=== PATIENT | female | born 1950 | race Caucasian/White ===

== ENCOUNTER 2019-09-12 10:42 | Outpatient (CLI) | payer MEDICARE, SELFPAY ==
--- NOTE | ~2019-09-12 | MR_ITS ---
EXAMINATION: MR brain/brain stem wo con DATE: 09/12/2019 11:53 INDICATION: Hydrocephalus. TECHNIQUE: Magnetic resonance imaging (MRI) of the brain and brainstem was performed without intraven ous contrast. Sequences included sagittal and axial T1-weighted FSE, axial diffusion-weighted FS EPI, axial T2*-weighted GRE, axial T2-weighted FLAIR Propeller, and axial T2-weighted Propeller. Apparent diffusion coefficient (ADC) maps were created. COMPARISON: Brain MRI 07/10/2018, head CT 10/29/2018 FINDINGS: There are scattered areas of nonspecific increased T2-weighted signal intensity in the cere bral white matter. There is a small old infarct in right occipital lobe. There is no intracranial hem orrhage, acute infarction, or abnormal intracranial mass lesion. The ventricles are normal in size. T here are likely changes of ocular lens replacement surgeries. There is mild mucosal thickening in the paranasal sinuses. The mastoid air cells are normal. IMPRESSION: 1. Small old infarct in right occipital lobe. 2. Stable moderate nonspecific cerebral white matter disease, which likely represents chronic small v essel ischemic disease. Reviewed, dictated and finalized at location A. CE JUSTICE IMPRESSION: 1. Small old infarct in right occipital lobe. 2. Stable moderate nonspecific cerebral white matter disease, which likely repr esents chronic small vessel ischemic disease.
== END 2019-09-12 10:43 | disposition home or self-care (01) ==
LOC: ANHIMG 10:44
PROVIDERS: Visit Provider Psychiatry & Neurology Neurology
DX: G91.9 Hydrocephalus, unspecified (principal); R93.0 Abnormal findings on diagnostic imaging of skull and head, not elsewhere classified; R90.82 White matter disease, unspecified; Z86.73 Personal history of transient ischemic attack (TIA), and cerebral infarction without residual deficits
CPT/HCPCS: 70551

== ENCOUNTER 2019-10-12 11:55 | Inpatient (IN) | payer MEDICARE, SELFPAY ==
[2019-10-12] VITALS (8 sets, daily range): BP systolic 135–162; BP diastolic 73–99; PULSE 77–92; RESP 14–28; TEMP 36.8–36.9; O2SAT 96–100; BMI 34.0
--- NOTE | ~2019-10-12 | XR_ITS ---
EXAMINATION: XR chest 2V DATE: 10/12/2019 13:19 INDICATION: Right hemiparesis. Slurred speech. Altered mental status. TECHNIQUE: Frontal and lateral views of the chest were obtained. COMPARISON: None. FINDINGS: Calcified right lung nodules are consistent with old granulomatous disease. No pleural effu ann or pneumothorax. The heart size is normal. There are compression fractures of T12 and L2, likely chronic. IMPRESSION: 1. No acute cardiopulmonary disease. Reviewed, dictated and finalized at location A. BLAST EQUIPMENT OPERATOR
--- NOTE | ~2019-10-12 | MR_ITS ---
EXAMINATION: MR brain/brain stem wo/w con DATE: 10/13/2019 12:42 INDICATION: Dysarthria. Right facial weakness. Right hemiparesis. TECHNIQUE: Magnetic resonance imaging (MRI) of the brain and brainstem was performed without with 15 mL MultiHance intravenous contrast. Sequences included sagittal and axial T1-weighted FSE, axial diff usion-weighted FS EPI, axial T2*-weighted GRE, axial T2-weighted FLAIR Propeller, and axial T2-weight ed Propeller. Postcontrast sequences included axial and coronal T1-weighted FSE. Apparent diffusion c oefficient (ADC) maps were created. COMPARISON: Brain MRI 09/12/2019, CTA 10/12/2019 FINDINGS: There are acute infarcts in superior right cerebellum. There is no intracranial hemorrhage or abnormal mass lesion. There are scattered areas of nonspecific increased T2-weighted signal intens ity in the cerebral white matter. There are old infarcts in the superior cerebellum bilaterally. Ther e is a small old infarct in right occipital lobe. The ventricles are normal in size. There are likely changes of ocular lens replacement surgeries. There is mild mucosal thickening in the paranasal sinu ses. The mastoid air cells are normal. IMPRESSION: 1. Acute infarcts in superior right cerebellum. 2. Old infarcts in the right occipital lobe and bilateral cerebellum. 3. Unchanged moderate nonspecific cerebral white matter disease, which likely represents chronic smal l vessel ischemic disease. Reviewed, dictated and finalized at location A. OR OF NAPRAPATHY IMPRESSION: 1. Acute infarcts in superior right cerebellum. 2. Old infarcts in the right occipital lobe and bilateral cerebellum. 3. Unchanged moderate nonspecific cerebral white matter disease, which likely r epresents chronic small vessel ischemic disease.
--- NOTE | ~2019-10-12 | CT_ITS ---
EXAMINATION: CTA brain carotid DATE: 10/12/2019 14:20 INDICATION: Dysarthria. TECHNIQUE: Computed tomographic angiography (CTA) of the head was performed with 100 mL Omnipaque-350 intravenous contrast. CTA of the neck was performed with intravenous contrast. Automated exposure co ntrol and iterative reconstruction technique were employed. The dose-length product was 1085.67 mGy-c m. Maximum intensity projection and volume rendered 3D-reconstructions were created by the [employer] st on a separate workstation. COMPARISON: Head CT 10/12/2019, 10/29/2018, brain MRI 09/12/2019 FINDINGS: HEAD CTA: There are old infarcts in the cerebellum bilaterally. There are scattered areas of low atte nuation in the cerebral white matter. There is no intracranial hemorrhage, acute infarction, or abnor mal intracranial mass lesion. The ventricles are normal in size. There is mild mucosal thickening in the ethmoid sinuses. The mastoid air cells are normal. The vertebral arteries are codominant. There i s no significant stenosis of basilar artery or the posterior cerebral arteries. The posterior communi cating arteries are normal. There is no significant stenosis of the intracranial internal carotid art eries or anterior or middle cerebral arteries. Anterior communicating artery is normal. There is no a neurysm. NECK CTA: There are no pathologically enlarged lymph nodes. There is plaque in the proximal internal carotid arteries. There is 0% stenosis of the proximal right internal carotid artery relative to norm al distal artery lumen diameter (NASCET criteria). There is 0% stenosis of the proximal left internal carotid artery relative to normal distal artery lumen diameter. There is moderate cervical spondylos is. There is interbody fusion at C4-C5 and C5-C6. IMPRESSION: 1. Old infarcts in the cerebellum bilaterally. 2. Moderate nonspecific cerebral white matter disease, which likely represents chronic small vessel i schemic disease, stable from 10/29/2018. 3. No aneurysm or significant intracranial arterial stenosis. 4. 0% stenosis of the proximal internal carotid arteries relative to normal distal artery lumen diame ters (NASCET criteria). Reviewed, dictated and finalized at location A. ERIOLOGY TEACHER IMPRESSION: 1. Old infarcts in the cerebellum bilaterally. 2. Moderate nonspecific cerebral white matter disease, which likely represents chronic small vessel ischemic disease, stable from 10/29/2018. 3. No aneurysm or significant intracranial arterial stenosis. 4. 0% stenosis of the proximal internal carotid arteries relative to normal dis pablo artery lumen diameters (NASCET criteria).
--- NOTE | ~2019-10-12 | CT_ITS ---
EXAMINATION: CT brain wo con DATE: 10/12/2019 12:23 INDICATION: Slurred speech and right-sided weakness TECHNIQUE: Computed tomography (CT) of the head was performed without intravenous contrast. Sagittal and coronal reconstructions were performed. The mA was adjusted according to patient size. Iterative reconstruction technique was employed. The dose-length product was 605.33 mGy-cm. COMPARISON: head CT dated 10/29/2018 and brain MR dated 09/12/2019 and 07/10/2018 FINDINGS: No acute intracranial hemorrhage, acute infarction or abnormal extra axial fluid collection. Small ol d infarct in the left cerebellar hemisphere. Unchanged chronic symmetric enlargement of the left and right lateral and third ventricles which is disproportionate to the relatively mild increased promine nce of the sulci. There is mild to moderate periventricular predominant scattered white matter hypoat tenuation consistent with chronic small vessel ischemic disease. No mass/mass effect. Changes of bila teral intraocular lens replacement. Mild mucosal thickening in the bilateral ethmoid and left sphenoi d sinuses. The orbits and mastoid air cells are normal. Intracranial calcified cerebral atheroscleros is is noted. IMPRESSION: 1. No acute intracranial process. 2. Small old left cerebellar infarct. 3. Chronic increased prominence of the ventricles relative to the sulci which could be related to mil d central predominant atrophy or normal pressure hydrocephalus. 4. Mild to moderate scattered white matter hypoattenuation consistent with chronic small vessel ische ashanti disease. Reviewed, dictated and finalized at location A. ARY ACQUISITIONS TECHNICIAN IMPRESSION: 1. No acute intracranial process. 2. Small old left cerebellar infarct. 3. Chronic increased prominence of the ventricles relative to the sulci which c ould be related to mild central predominant atrophy or normal pressure hydrocep halus. 4. Mild to moderate scattered white matter hypoattenuation consistent with e learning coordinator emeka small vessel ischemic disease.
--- NOTE | 2019-10-12 12:26 | ED.NEUROSD ---
HPI - Neuro Symptoms/Deficit General Chief Complaint: Suspected CVA Stated Complaint: slurred speech onset 0930 Time Seen by Provider: 10/12/19 12:11 History of Present Illness HPI Narrative: abnormal speech worse this morning feels like rt side is drooping just not coming out right - speech DM, blood sugar ok family says 160 bs this am no cp no sob no palp no sickness before today sudden onset fine this am at 930 speech improving denies similar episode no urinary sx eating and drinking ok denies weakness no tia in the past no anticoagulation takes aspirin today nka FLAHERTY Related Data Home Medications Medication Instructions Recorded Confirmed Aspir-Low 10/12/19 atorvastatin 10/12/19 blood sugar diagnostic [OneTouch 10/12/19 10/12/19 Ultra Blue Test Strip] glimepiride mg 10/12/19 lisinopril 10/12/19 metformin mg 10/12/19 Allergies Allergy/AdvReac Type Severity Reaction Status Date / Time No Known Allergies Allergy Verified 10/12/19 12:38 [facility] Family History Family History (Updated 05/04/18 @ 10:21 by DOCTOR UNKNOWN) Other Diabetes mellitus Family history of arthritis Family history of lung cancer Family history of lung disease Family history of malignant neoplasm of breast Hypertension Social History Social History Smoking status: Never smoker Alcohol intake: current Gender identity (if verbalized by the patient): Female Exam Const: General: no acute distress, alert and ill appearing chronically Orientation/consciousness: patient oriented x3 HENMT: Mouth: Yes dry mucous membranes Eyes: Conjunctivae: conjunctivae normal Pupils: Equal, round and reactive pupils present EOM: EOMs intact bilaterally Resp: Effort & Inspection: normal respiratory effort Auscultation: clear to auscultation bilaterally Cardio: Rate: regular rate Rhythm: regular rhythm GI: GI Palp: Yes Soft to palpation and No Tenderness to palpation present (GI) Skin: General skin exam: normal color Rashes: no rashes Neuro: General: patient oriented x3 and moves all extremities Cranial nerves: Yes Nystagmus not present Speech: Abnormal speech present Other: mild dysarthria. 5/5 strength throughout. coordination normal. Extrem: General: no edema Course Vital Signs Vital signs: Vital Signs Temperature 36.8 C 10/12/19 11:55 Pulse Rate 89 10/12/19 11:55 Respiratory Rate 18 03/04/20 11:55 Pulse Oximetry 100 10/12/19 11:55 Temperature 36.8 C 10/12/19 11:55 Pulse Rate 78 10/12/19 14:00 Respiratory Rate 14 10/12/19 14:00 Blood Pressure 162/73 H 10/12/19 14:00 Pulse Oximetry 99 10/12/19 14:00 MDM - Neuro Symptoms/Deficit MDM Narrative Medical decision making narrative: SHe has mild symptoms which are reportedly improving. At the time of my evaluation her symptoms started about 3 hours prior. These things make her a poor TPA candidate and I do not believe that it would be worth the risk to administer in this patient. CT was negative for bleed. Given ASA. Case discussed with Neuro. Will admit for futher stroke evaluation. Differential Diagnosis Differential diagnosis: Likely subarachnoid hemorrhage, cerebrovascular accident and transient cerebral ischemia Medical Records Attestation: I reviewed the patient's medical records. Lab Data Attestation: I reviewed the patient's lab results. Result diagrams: 10/12/19 12:48 10/12/19 12:48 Labs: Lab Results 10/12/19 10/12/19 10/12/19 Range/Units 12:48 12:48 12:48 WBC 6.4 (4.5-10.0) K/mm3 RBC 3.51 L (4.2-5.4) M/mm3 Hgb 11.3 L (12.0-15.0) g/dL Hct 35.5 L (37.0-47.0) % MCV 101.1 H (80-100) fl MCH 32.2 (26-34) pg MCHC 31.8 L (32-36) g/dl RDW 13.1 (11.5-14.5) % Plt Count 204 (150-375) k/mm3 MPV 10.1 (7.4-10.4) fl Immature Gran % (Auto) 0.3 (0-0.5) % Neut % (Auto) 66.6 (45.5-73.1) % Lymph % (Auto) 19.
[2019-10-12 12:55] LABS: Glucose Point of Care 262 (65-105)
[2019-10-12 12:56] LABS: Basophils Absolute Auto 0.1 K/mm3 (0.0-0.1); Basophils Percent Auto 1.7 % (0.2-1.2); Eosinophils Absolute Auto 0.3 K/mm3 (0-0.3); Eosinophils Percent Auto 4.7 % (0-4.4); Hematocrit 35.5 % (37.0-47.0); Hemoglobin 11.3 g/dL (12.0-15.0); Immature Granulocyte Absolute 0.02 K/mm3 (0.00-0.031); Immature Granulocyte Percent A 0.3 % (0-0.5); Lymphocytes Absolute Auto 1.25 K/mm3 (0.9-3.2); Lymphocytes Percent Auto 19.5 % (18.3-44.2); Mean Corpuscular HGB Conc 31.8 g/dl (32-36); Mean Corpuscular Hemoglobin 32.2 pg (26-34); Mean Corpuscular Volume 101.1 fl (80-100); Mean Platelet Volume 10.1 fl (7.4-10.4); Monocytes Absolute Auto 0.5 K/mm3 (0.1-0.6); Monocytes Percent Auto 7.2 % (2.6-8.5); Neutrophils Absolute Auto 4.3 K/mm3 (1.3-6.7); Neutrophils Percent Auto 66.6 % (45.5-73.1); Platelet Count Result 204 k/mm3 (150-375); Red Blood Count 3.51 M/mm3 (4.2-5.4); Red Cell Distribution Width 13.1 % (11.5-14.5); White Blood Count 6.4 K/mm3 (4.5-10.0)
[2019-10-12] MEDS: SODIUM CHLORIDE 0.9% IV 1,000 ML 999 ML IV CONT (12:57)
[2019-10-12] MEDS: ASPIRIN 81 MG CHEWABLE TABLET 324 MG PO (12:57)
[2019-10-12 13:08] LABS: INR 0.9; Prothrombin Time 12.3 Seconds (11.1-14.7)
[2019-10-12 13:09] LABS: Partial Thromboplastin Time 26.4 SECONDS (22.3-36.8)
[2019-10-12 13:13] LABS: Alanine Aminotransferase 15 U/L (4-35); Albumin Level 3.8 g/dL (3.5-5.1); Alkaline Phosphatase 38 U/L (38-126); Aspartate Amino Transferase 25 U/L (14-36); Bilirubin,Total 0.6 mg/dL (0.2-1.3); Blood Urea Nitrogen 19 mg/dL (7-17); Carbon Dioxide 27 mmol/L (22-30); Chloride 101 mmol/L (98-107); Estimated CRCL calculation 51 ml/min; Estimated Glomerular Filt Rate > 60; Glucose 271 mg/dL (65-105); Potassium 5.9 mmol/L (3.4-5.0); Sodium 139 mmol/L (137-145)
[2019-10-12 13:24] LABS: Troponin I < 0.012 ng/mL (0.000-0.034)
--- NOTE | 2019-10-12 14:01 | PC.NURSE ---
no new neuro deficits. 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 speech remains slightly slurred. headache continues. sister at bedside
[2019-10-12] MEDS: LACTATED RINGERS 1,000 ML 100 ML (14:41)
--- NOTE | 2019-10-12 14:44 | ECG_ITS ---
Measurements Intervals [place] Rate: 80 P: 63 TN: 150 QRS: 41 QRSD: 90 T: 73 QT: 371 QTc: 429 Interpretive Statements SINUS RHYTHM LOW QRS VOLTAGE IN PRECORDIAL LEADS BORDERLINE ST-T WAVE ABNORMALITY- LATERAL LEADS BASELINE ARTIFACT- II, III, AVR, AVL, AVF BORDERLINE ECG Electronically Signed On 10-12-2019 14:52:47 RENAL MEDICINE PHYSICIAN by Jarvis Payne D.O.
[2019-10-12 14:53] LABS: Add Urine Microscopic? YES; Appearance Urine Clear (Clear); Bilirubin Urine Negative (Negative); Blood Urine Negative (Negative); Color Urine Yellow (Yellow); Glucose Urine UA 3+ mg/dL (Negative); Ketones Urine Negative (Negative); Leukocyte Esterase Ur Negative LEU/UL (Negative); Mucus Urine Rare /lpf; Nitrate Urine Negative (Negative); Protein Urine Negative (Negative); RBC Urine 0-2 /hpf (0-2); Specific Grav Ur 1.024 (1.001-1.035); Urobilinogen Urine Negative mg/dL (<2.0)
--- NOTE | 2019-10-12 16:47 | PC.NURSE ---
attemptd to call report to receiving rn for room 316. told rn busy and will call back.
--- NOTE | 2019-10-12 17:37 | ADMGEN ---
This patient, Makenzie Rojo, was admitted to 3 [facility] Surg Room 316-01. Patient/family oriented to hospital policies and general routines including ID bracelet, bed and alarms, visiting hours, pain management, procedures, bathroom and other care routines, personal items, smoking policy, room service/diet, and visiting hours. Valuables list has been completed. Information on how to activate the Rapid Response Team has been discussed. Patient/Family are encouraged to report perceived risks to care and to ask questions if they do not understand what they are told or what they should do.
[2019-10-12 19:03] LABS: Glucose Point of Care 158 (65-105)
[2019-10-12 20:16] LABS: Blood Urea Nitrogen 17 mg/dL (7-17); Calcium 8.3 mg/dL (8.4-10.2); Carbon Dioxide 24 mmol/L (22-30); Chloride 99 mmol/L (98-107); Estimated CRCL calculation 51 ml/min; Estimated Glomerular Filt Rate > 60; Glucose 156 mg/dL (65-105); Potassium 5.2 mmol/L (3.4-5.0); Sodium 136 mmol/L (137-145)
--- NOTE | 2019-10-12 21:16 | PM.IMHP ---
H&P: HPI History of Present Illness Chief complaint: suspected stroke Narrative: Makenzie Rojo is a 69 year old female to the emergency room because she suspected that she might of had a stroke. Her speech was slurred since 05/09 this morning she was having difficulty getting words out and doing well searching. One family member said she had a right-sided facial droop. One family member stated that her blood sugar was 160 this morning. She is diabetic. She had no chest pain shortness breath or fever. She does take an aspirin daily. A CT of the brain without contrast which was read as nothing acute small old left cerebellar infarction. Patient has no residual from that. Chest x-ray was read as nothing acute. Head CT Zaiz she does show the old infarcts in the cerebellum bilaterally. No aneurysm. 0% stenosis of the proximal internal carotid arteries. Patient was started on an aspirin in IV fluids. Patient has improved somewhat. No facial drooping is noted at this time. Possibly TIA possibly CVA without residual. Date of service 10/12/2019 neurology was consulted. Review of Systems Review of Systems: Narrative: Only problem the patient is having is difficulty speaking. She sounds like she has a speech impediment. She has some word searching as well. No facial droop. No focal weakness. All systems reviewed & are unremarkable except as noted in HPI and below Constitutional: Constitutional: Reports as per HPI and Reports no additional constitutional complaints Eyes: Eyes: Reports as per HPI and Reports no additional eye complaints ENT: Reports system reviewed and no additional complaints, except as documented and Reports Normal hearing present Cardiovascular: Cardiovascular: Reports no additional cardiovascular complaints Respiratory: Respiratory: Reports no additional respiratory complaints and Reports no additional respiratory complaints Gastrointestinal: Gastrointestinal: Reports as per HPI and Reports no additional gastrointestinal complaints Musculoskeletal: Musculoskeletal: Reports no additional musculoskeletal complaints Integumentary/Breasts: Skin/Breast: Reports system reviewed and no additional complaints, except as docu and Reports as per HPI Neurologic: Reports system reviewed and no additional complaints, except as documented, Reports as per HPI and Reports Normal hearing present Psychiatric: Psychiatric: Reports no additional psychiatric complaints and Reports as per HPI Endocrine: Endocrine: Reports no additional endocrine complaints Hematologic/Lymphatic: Hematologic/Lymphatic: Reports no additional hematologic/lymphatic complaints Allergic/Immunologic: Allergic/Immunologic: Reports no additional allergic/immunologic complaints [facility] Past Medical History Medical History (Updated 10/12/19 @ 21:24 by Tete Costello NP) CVA (cerebral vascular accident) Diabetes mellitus type 2, controlled, without complications HTN (hypertension) with goal to be determined Hyperlipidemia Hypertension Surgical History Surgical History (Updated 10/12/19 @ 21:24 by Teet Costello NP) H/O cataract extraction H/O rectal polypectomy History of tonsillectomy History of total bilateral knee replacement Family History Family History Sibling Diabetes mellitus Dementia Mother Family history of malignant neoplasm of breast Family history of lung cancer Brain cancer Sibling Hypertension Other Family history of arthritis Family history of lung disease Social History Social History (Updated 10/12/19 @ 21:26 by Tete Costello NP) Social History: Patient is . She lives alone. She has no children. Lifelong nonsmoker no alcohol no illicit drugs. 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 S
[2019-10-12 23:40] LABS: Glucose Point of Care 129 (65-105)
[2019-10-13] VITALS (7 sets, daily range): BP systolic 132–161; BP diastolic 63–72; PULSE 77–92; RESP 16–20; TEMP 36.8–37; O2SAT 97
--- NOTE | 2019-10-13 | ECHO_ITS ---
Patient Info Name: Makenzie Jeter Overfelt Age: 69 years : 1950 Gender: Female Ht: 62 in Wt: 186 lbs BSA: 1.96 m2 HR: 76 bpm BP: 135 / 74 mmHg Technical Quality: Good Exam Date: 10/13/2019 9:50 AM Exam Location: [facility] Patient Status: Outpatient Admit Date: 10/12/2019 Staff Ordering Physician: Tete Costello NP Folding Machine Operator: Enio Bender RDCS, RT Attending Provider: Moe Oquendo MD Referring Physician: Trang SCHMIDT; Exam Type: CA echo doppler w bubble study Study Info Indications I50.9 - Heart failure, unspecified Complete two-dimensional, color flow and Doppler transthoracic echocardiogram is performed with agitated saline. Summary 1. Left ventricular systolic function is normal, estimated at 60-65%. 2. There is moderately increased left ventricular wall thickness. 3. The left ventricular diastolic function is grade I diastolic dysfunction. 4. There is mild mitral valve regurgitation. 5. There is mild tricuspid valve regurgitation. 6. Estimated pulmonary artery pressure 37 mmHg. Left Ventricle E/e' 10.0 is normal. Left ventricular chamber dimension is normal. Left ventricular systolic function is normal, estimated at 60-65%. There is moderately increased left ventricular wall thickness. Left ventricular septal wall motion is normal. The left ventricular diastolic function is grade I diastolic dysfunction. Right Ventricle Right ventricular chamber dimension is normal. Right ventricular systolic function is normal. Left Atria Left atrial chamber dimension is normal. Right Atria Right atrial chamber dimension is normal. Atrial Septum Intact interatrial septum visualized by agitated saline imaging. Aortic Valve The aortic valve is not well visualized. There is no aortic valve sclerosis. There is no aortic valve stenosis. There is no aortic valve regurgitation. Pulmonic Valve The pulmonic valve is normal. There is no pulmonic valve stenosis. There is no pulmonic regurgitation. Mitral Valve The mitral valve has normal leaflets. There is no mitral valve stenosis. There is mild mitral valve regurgitation. Tricuspid Valve The tricuspid valve leaflets are normal. There is no significant tricuspid valve stenosis. There is mild tricuspid valve regurgitation. Pericardium/Pleural The pericardium appears normal. There is no pericardial effusion. Inferior Vena Cava Normal inferior vena cava with <50% collapse upon inspiration consistent with normal right atrial pressure, 10 mmHg. Aorta The aortic root size at the sinus of Valsalva is normal. The prox ascending aorta size is normal. Left Ventricular Outflow Tract Name Value Normal LVOT 2D LVOT Diameter 2.0 cm LVOT Doppler LVOT Peak Gradient 4 mmHg LVOT Mean Gradient 2 mmHg LVOT VTI 24 cm LVOT VTI/AV VTI Ratio 0.8 LVOT Stroke Volume 71 ml LVOT CO 5.1 l/min LVOT CI 2.6 l/mi
[2019-10-13] MEDS: SODIUM CHLORIDE 0.9% IV 1,000 ML 100 ML IV CONT (06:34)
[2019-10-13 06:48] LABS: Basophils Absolute Auto 0.1 K/mm3 (0.0-0.1); Basophils Percent Auto 1.8 % (0.2-1.2); Eosinophils Absolute Auto 0.4 K/mm3 (0-0.3); Eosinophils Percent Auto 8.6 % (0-4.4); Hematocrit 32.8 % (37.0-47.0); Hemoglobin 10.5 g/dL (12.0-15.0); Immature Granulocyte Absolute 0.02 K/mm3 (0.00-0.031); Immature Granulocyte Percent A 0.4 % (0-0.5); Lymphocytes Absolute Auto 1.25 K/mm3 (0.9-3.2); Lymphocytes Percent Auto 24.4 % (18.3-44.2); Mean Corpuscular Hemoglobin 32.4 pg (26-34); Mean Corpuscular Volume 101.2 fl (80-100); Monocytes Absolute Auto 0.5 K/mm3 (0.1-0.6); Monocytes Percent Auto 9.6 % (2.6-8.5); Neutrophils Absolute Auto 2.8 K/mm3 (1.3-6.7); Neutrophils Percent Auto 55.2 % (45.5-73.1); Platelet Count Result 196 k/mm3 (150-375); Red Blood Count 3.24 M/mm3 (4.2-5.4); Red Cell Distribution Width 13.2 % (11.5-14.5); White Blood Count 5.1 K/mm3 (4.5-10.0)
[2019-10-13 07:00] LABS: Hemoglobin A1C 6.5 % (<5.7)
[2019-10-13 07:06] LABS: Alanine Aminotransferase 13 U/L (4-35); Albumin Level 3.3 g/dL (3.5-5.1); Alkaline Phosphatase 40 U/L (38-126); Aspartate Amino Transferase 21 U/L (14-36); Bilirubin,Total 0.4 mg/dL (0.2-1.3); Blood Urea Nitrogen 13 mg/dL (7-17); Calcium 8.4 mg/dL (8.4-10.2); Carbon Dioxide 29 mmol/L (22-30); Chloride 106 mmol/L (98-107); Estimated CRCL calculation 47 ml/min; Estimated Glomerular Filt Rate 55; Glucose 123 mg/dL (65-105); Potassium 4.5 mmol/L (3.4-5.0); Sodium 139 mmol/L (137-145)
[2019-10-13 08:36] LABS: Glucose Point of Care 155 (65-105)
[2019-10-13] MEDS: metFORMIN HCL 500 MG TABLET 1000 MG PO (10:29)
[2019-10-13] MEDS: MAGNESIUM SULF 2 GM/WATER 50ML 2 GM/50 ML BAG IVPB (10:29)
[2019-10-13] MEDS: ASPIRIN 325 MG ENTERIC TABLET PO (10:30)
[2019-10-13] MEDS: lisinopriL 20 MG TABLET PO (10:31)
[2019-10-13 12:55] LABS: Glucose Point of Care 167 (65-105)
[2019-10-13] MEDS: PERFLUTREN LIPID MICROSPHERES 1.5 ML VIAL DILUTED TO 10 ML TOTAL VOLUME IV PUSH (13:10)
--- NOTE | 2019-10-13 14:42 | CONS_ITS ---
DATE OF CONSULTATION: 10/13/2019 HISTORY: This 69 years old right-handed female had been admitted to [facility] through the emergency room with the information that she might have had a new stroke. Reportedly, her speech was slurred since 09:30 in the morning. She was having difficulties getting the right words out and doing well getting the words out. She was also noted to have right facial droop. Her blood sugar in the morning was 160. She is known diabetic. She did not complain of any difficulties in breathing or chest pain. While in the emergency room, her CT scan of the brain was done, which was compatible with left old cerebellar infarct. Chest x-ray was negative. CTA was done, which revealed 0% stenosis of proximal internal carotid artery. She was started on the IV fluids along with the aspirin and definitely showed these some improvement. She was admitted to the hospital for the neurological changes. PAST MEDICAL HISTORY: In addition, she has ongoing history of 1. Type 2 diabetes mellitus, controlled without complication. 2. Hypertension. 3. Hyperlipidemia. 4. Recent symptomatology. PAST SURGICAL HISTORY: In the past, she has undergone cataract extraction, rectal polypectomy, tonsillectomy, and total bilateral knee replacement. SOCIAL HISTORY: She lives alone. No children. She is a lifelong nonsmoker. No alcohol. No drugs. MEDICATIONS: At the time of admission to the hospital, she was taking 1. Aspirin low-dose daily. 2. Atorvastatin. 3. Glimepiride. 4. Lisinopril. 5. Metformin. PHYSICAL EXAMINATION: VITAL SIGNS: Evaluation revealed her to be afebrile with normotensive with blood pressure 151/80, then repeat was 162/73. GENERAL: Physical examination revealed her to be awake, alert, and comfortable, in no obvious acute distress. HEENT: Head was normocephalic with no cranial bruit. Ear, nose, throat examination was normal. NECK: Supple with no cervical bruit. No thyromegaly. No lymphadenopathy and with a full range of motion without any abnormalities. LUNGS: Clear to auscultation with no crepitation, no rhonchi. HEART: Regular with regular rhythm. No murmur. ABDOMEN: Soft with no organomegaly. NEUROLOGICAL: She was awake, alert, oriented x3. Pupils were round and regular. Grimes of vision full. Extraocular movements full. Face symmetrical. Tongue midline. Motor examination revealed her to have no drift of 1 side or other side. Reflexes were symmetrical. Plantars were downgoing. There was no evidence of gross sensory deficit. LABORATORY DATA: Evaluation up until now revealed her to have normal CBC, WBC 6.4, hemoglobin 11.3, platelet count 204, normal basic metabolic panel, troponin of 0.012, normal hepatic enzymes. UA negative except 3+ glucose. IMAGING DATA: Chest x-ray was negative. CT scan of the heart revealed an old left cerebellar infarct, [id number] scattered white matter hypoattenuation, consistent with chronic small-vessel ischemic disease. Head and neck CTA revealed old infarct in the cerebellum bilaterally white matter disease. No aneurysm. No stenosis. MRI of the head was done on September 12, which again documented the right occipital lobe infarct in addition to the bi-cerebellar infarct. PLAN: The patient is to continue on the medication, which is atorvastatin 20 mg daily, aspirin 81 mg daily, lisinopril 20 mg daily, metformin 1000 mg twice a day, glimepiride 2 mg daily. She will benefit from the physical therapy and occupational therapy because of the stroke even though it is old, but she is having more difficulties. RELL MARTINEZ M.D. EXHIBITS MANAGER EXHIBITS MANAGER D
--- NOTE | 2019-10-13 14:49 | PM.DS ---
DS: Diagnosis Admitting Diagnosis Admitting Diagnosis: Cerebral infarction, unspecified Discharge Diagnosis (1) CVA (cerebral vascular accident): Code(s): I63.9 - Cerebral infarction, unspecified Status: Acute Assessment and Plan: MRI with old right occipital and bilateral cerebellar infarctions and NEW superior right cerebellar infarctions Echo with good LV function Telemetry with NSR Clopidogrel 75mg daily added at discharge 48 hr holter monitor ordered (2) Hypertension: Code(s): I10 - Essential (primary) hypertension Status: Chronic Assessment and Plan: Continue with home medications (3) Hyperlipidemia: Code(s): E78.5 - Hyperlipidemia, unspecified Status: Chronic Assessment and Plan: Continue atorvastatin (4) Diabetes mellitus type 2, controlled, without complications: Code(s): E11.9 - Type 2 diabetes mellitus without complications Status: Acute Assessment and Plan: Resume home regimen and monitor blood sugars (5) Dysarthria: Code(s): R47.1 - Dysarthria and anarthria Status: Acute Assessment and Plan: Speech therapy via home health DS: Summary Hospital Course Reason for hospitalization: Slurred speech Hospital Course: Patient presented with slurred speech. No dysphagia or odynophagia. No diplopia. No new focal weakness or numbness. History of prior strokes with negative evaluation. Repeat evaluation here showed new right superior cerebellar infarcts. Echocardiogram was unrevealing. Telemetry and EKG showed sinus rhythm. CTA of the carotids brain showed no obstructive lesions. On day of discharge, other than mild dysarthria, patient was at her baseline status. She was evaluated by physical therapy and deemed an appropriate candidate for ongoing therapy. Home health was ordered. Status at Discharge Functional status at discharge: uses cane/walker Overall status at discharge: patient is progressing back to baseline Time Spent with Patient Time attestation: Total time spent providing and/or coordinating discharge services: 38 min Exam Narrative: Exam Narrative: HEENT: EOMI, PERRL, sclerae nonicteric, pharyngeal mucosa pink and intact NECK: No JVD CHEST: Clear to auscultation. Normal effort. HEART: NL S1/S2, regular, no murmur ABDOMEN: BS+, soft, nontender, no mass, no bruits EXTREMITIES: No cyanosis, edema, or clubbing NEUROLOGIC: CN intact and symmetric to inspection. Tone and strength symmetric. FTN intact. Speech slighly halting but clear. MUSCULOSKELETAL: Tone and strength symmetric. PSYCH: Alert. Oriented to person, place, and time. DS: Data Data Completed and Pending Labs on day of discharge: Labs from last 24 hours 10/13/19 10/13/19 10/13/19 12:51 08:34 06:18 WBC RBC Hgb Hct MCV MCH MCHC RDW Plt Count MPV Immature Gran % (Auto) Neut % (Auto) Lymph % (Auto) [place] % (Auto) Eos % (Auto) Baso % (Auto) Lymph # (Auto) [place] # (Auto) Eos # (Auto) Baso # (Auto) Abs Immat Gran (auto) Absolute Neuts (auto) Absolute Nucleated RBC Nucleated RBC % Sodium Potassium Chloride Carbon Dioxide BUN Creatinine Estim Creat Clear Calc Estimated GFR Glucose POC Capillary Glucose 167 H 155 H Hemoglobin A1c Calcium Magnesium Total Bilirubin AST ALT Alkaline Phosphatase Total Protein Albumin TSH (Reflex) 3.680 Urine Color Urine Appearance Urine pH Ur Specific Hudson Urine Protein Urine Glucose (UA) Urine Ketones Ur Blood (Man) Urine Nitrate Urine Bilirubin Urine Urobilinogen Leukocyte Esterase Rfl Urine RBC Hyaline Casts Urine Mucus 10/13/19 10/13/19 10/13/19 06:18 06:18 06:18 WBC 5.1 RBC 3.24 L Hgb 10.5 L Hct 32.8 L MCV 101.2 H MCH 32.4 MCHC 32.0 RDW 13.2 Plt C
[2019-10-13 18:18] LABS: Glucose Point of Care 113 (65-105)
== END 2019-10-13 19:00 | disposition home or self-care (01) | DRG 66 ==
LOC: ANHED 15:04 → ANH3MEDSUR 15:50
PROVIDERS: Nurse Practitioner; Admitting Provider Internal Medicine; Emergency Provider Emergency Medicine; PCP Psychiatry & Neurology Neurology; Visit Provider Internal Medicine
DX: I63.9 Cerebral infarction, unspecified (principal); R47.1 Dysarthria and anarthria; R47.81 Slurred speech; I10 Essential (primary) hypertension; E78.5 Hyperlipidemia, unspecified; E11.9 Type 2 diabetes mellitus without complications; Z96.653 Presence of artificial knee joint, bilateral; Z98.42 Cataract extraction status, left eye; Z98.41 Cataract extraction status, right eye; Z79.82 Long term (current) use of aspirin
CPT/HCPCS: 36415; 70450; 70496; 70498; 70553; 71046; 80048; 80053; 81001; 82948; 83036; 83735; 84443; 84484; 85025; 85610; 85730; 92522; 92523; 92610; 93005; 93306; 96361; 96365; 96375; 99285; A9270; A9577; J0131; J3475; J7030; J7120; Q9957; Q9967

== ENCOUNTER → 2020-11-09 12:19 | Outpatient (CLI) | payer MEDICARE, SELFPAY ==
--- NOTE | ~2020-11-09 | MM_ITS ---
EXAMINATION: MM screening [facility] BI w melvin HISTORY: Screening mammogram TECHNIQUE: Craniocaudal and mediolateral oblique 3-D tomosynthesis images were obtained and synthetic 2-D images were generated. CAD analysis was submitted and interpreted. COMPARISON: 08/12/2019, 07/07/2018 BREAST PARENCHYMAL COMPOSITION: There are scattered areas of fibroglandular density. FINDINGS: Scattered benign-appearing calcifications are present. There is no evidence of suspicious m ass, calcification, or architectural distortion to suggest malignancy in either breast. There has bee n no suspicious interval change. IMPRESSION: 1. No mammographic evidence of malignancy. 2. Recommend routine screening mammography in one year. BI-RADS Category 2: Benign finding(s). Reviewed, dictated and finalized at location A.
== END ==
PROVIDERS: Visit Provider Obstetrics & Gynecology
DX: Z12.31 Encounter for screening mammogram for malignant neoplasm of breast (principal)
CPT/HCPCS: 77063; 77067

== ENCOUNTER 2021-10-30 11:42 | Outpatient (CLI) | payer MEDICARE, SELFPAY ==
[2021-10-30 12:57] LABS: Creatinine Urine 82.1 mg/dL
[2021-10-30 13:02] LABS: MALB Creatinine Ratio 39.2 mg/g (0-30); Microalbumin Urine Random 32.2 mg/L (0-16.7)
== END 2021-10-30 11:43 | disposition home or self-care (01) ==
LOC: ANHWCLAB 11:44
PROVIDERS: PCP Internal Medicine; Visit Provider Internal Medicine Endocrinology, Diabetes & Metabolism
DX: R80.9 Proteinuria, unspecified (principal); E11.9 Type 2 diabetes mellitus without complications
CPT/HCPCS: 82043

== ENCOUNTER → 2022-06-16 13:28 | Outpatient (CLI) | payer MEDICARE, SELFPAY ==
--- NOTE | ~2022-06-16 | DEXA_ITS ---
Bone Density Report Name: VANESSA HAN Age: 72 Sex: Female Ethnicity: White Date of : 1950 Indication: postmenopausal; screening for osteoporosis; hysterectomy; Referring Provider: Lupis Montgomery Study: Bone densitometry was performed. Exam Date: June 16, 2022 Accession number: [id number] Bone Density: Region BMD T-score Z-score Classification AP Spine (L1, L2, L3) 1.071 0.5 2.7 Normal Femoral Neck (Left) 0.557 -2.6 -0.6 Osteoporosis Total Hip (Left) 0.670 -2.2 -0.5 Osteopenia Femoral Neck (Right) 0.517 -3.0 -1.0 Osteoporosis Total Hip (Right) 0.678 -2.2 -0.5 Osteopenia Total Hip Mean 0.674 -2.2 -0.5 Osteopenia World Health Organization criteria for BMD impression classify patients as: Normal (T-score at or above -1.0), Osteopenia (T-score between -1.0 and -2.5), or Osteoporosis (T-score at or below -2.5). 10-year Fracture Risk: FRAX not reported because: Some T-score for Spine Total or Hip Total or Femoral Neck at or below -2.5 Clinical Information Provided by Patient: Has the following medical conditions: Hysterectomy Patient maximum height was 61 Menopause Age: 49 No regular weight bearing exercise Onset of menses at age 15 Number of children 0 Impression: The patient has osteoporosis, based on the Right Femoral Neck T-score. Discussion: INCREASED RISK OF FRACTURE. BONE DENSITY IS UNDESIRABLY LOW AT ONE OR MORE SKELETAL SITES, CONSISTENT WITH POSTMENOPAUSAL OSTEOPOROSIS. This patient's lowest T-score meets the World Health Organization's (WHO) criteria for osteoporosis at one or more sites (T-score -2.5 or below). In untreated patients, the risk of osteoporotic fracture increases approximately two-fold for each 1.0 SD decrease in T-score. Low bone density is not the only risk factor for fracture; also consider factors such as patient's age, frailty or poor health, risk of falling, risk of injury, previous osteoporotic fracture, family history of osteoporosis, cigarette smoking, low body weight, etc. Not everyone with low bone mineral density has osteoporosis; osteomalacia and other metabolic bone disorders should also be considered. Patients who have osteoporosis should be evaluated for specific diseases and conditions (secondary causes) that may cause or contribute to bone loss. The [place] Association of Clinical Endocrinologists (AACE) and National Osteoporosis Foundation (NOF) recommend pharmacologic intervention for all postmenopausal women whose T-score is in this range. The patient should follow a healthful lifestyle (good nutrition with adequate calcium and vitamin D, and appropriate weight-bearing exercise). Follow-Up: Consider a repeat BMD and Vertebral Fracture Assessment (VFA) exam in 2 years or sooner if medically necessary, to reassess this patient's status. Repor
== END ==
PROVIDERS: PCP Internal Medicine; Visit Provider Internal Medicine Endocrinology, Diabetes & Metabolism
DX: Z78.0 Asymptomatic menopausal state (principal); M81.0 Age-related osteoporosis without current pathological fracture; M85.852 Other specified disorders of bone density and structure, left thigh; M85.851 Other specified disorders of bone density and structure, right thigh
CPT/HCPCS: 77080

== ENCOUNTER 2022-09-29 15:23 | Outpatient (CLI) | payer MEDICARE, SELFPAY ==
--- NOTE | ~2022-09-29 | US_ITS ---
EXAMINATION: US venous doppler [facility] DATE: 09/29/2022 16:24 INDICATION: Left lower limb swelling. TECHNIQUE: Grayscale ultrasound images without and with compression and Doppler ultrasound images of the left lower extremity veins were obtained. COMPARISON: None. FINDINGS: The calf veins are not well visualized. The visualized portions of left common femoral vein, profunda (deep) femoral vein, femoral vein, popliteal vein, peroneal veins, and greater saphenous vein outflo w are patent. There is thrombus in the posterior tibial veins. IMPRESSION: 1. Deep vein thrombosis involving the left posterior tibial veins. Reviewed, dictated and finalized at location A. CHUTE MANUFACTURING SUPERVISOR
== END 2022-09-29 15:24 | disposition home or self-care (01) ==
PROVIDERS: PCP Internal Medicine; Visit Provider Orthopaedic Surgery
DX: I82.442 Acute embolism and thrombosis of left tibial vein (principal)
CPT/HCPCS: 93971

== ENCOUNTER 2022-09-29 16:42 | Emergency (ER) | payer MEDICARE, SELFPAY ==
[2022-09-29] VITALS (33 sets, daily range): BP systolic 97–124; BP diastolic 33–64; PULSE 91–118; RESP 16; TEMP 36.7; O2SAT 96–100
[2022-09-29 17:56] LABS: Glucose Point of Care 237 mg/dl (65-105)
[2022-09-29 18:37] LABS: SARS-CoV-2 RNA PCR Negative
--- NOTE | 2022-09-29 18:37 | ED.EXTPRO ---
HPI - Extremity Problem General Chief complaint: Extremity Problem,Nontraumatic Stated complaint: had venous doppler, refered to ER Time Seen by Provider: 09/29/22 18:09 History of Present Illness HPI Narrative: 72-year-old female with a history of hypertension, hyperlipidemia, type 2 diabetes, CVA reports for left lower extremity edema and confirmed DVT on ultrasound today. Patient is being followed by and orthopedics after the patient underwent a repair of her femur in July 2022 at [facility]. At that point patient developed a decubitus ulcer to her sacrum that has continuously grown and tunneled. In August 2022, Dr. Michel took the patient back to surgery to take out a loose screw in the patient's femur. She went to her follow-up appointment today and Dr. Michel ordered a venous Doppler of the patient's left lower extremity due to increased swelling. Patient sister at bedside states the patient was not complaining of pain of her leg until today. She had an outpatient ultrasound done after her Ortho appointment which showed a DVT in her posterior tibial veins. Dr. Michel proceeded to call the patient with the results and informed her to come to the ED for treatment. Patient is currently denying chest pain and shortness of breath. She does report pain with palpation of her lower extremity. Patient is currently residing at [place] since the beginning of September. Patient's sister states she is seen twice a week by wound care doctor and 4 times a week by wound care nurse for care of her ulcer, with dressing changes 2x per day. Related Data Home Medications Medication Instructions Recorded Confirmed Aspir-Low 81 mg PO DAILY 10/12/19 05/08/22 calcium carbonate 600 mg-vitamin cap PO 11/21/20 05/08/22 D3 12.5 mcg (500 unit) capsule (Calcium 600 with Vitamin D3) ferrous sulfate 325 mg (65 mg 325 mg PO DAILY 11/21/20 05/08/22 iron) tablet cholecalciferol (vitamin D3) 125 125 mcg PO DAILY 02/14/21 05/08/22 mcg (5,000 unit) capsule cyanocobalamin (vitamin B-12) 1,000 mcg PO ONCE 02/14/21 05/08/22 1,000 mcg capsule Allergies Allergy/AdvReac Type Severity Reaction Status Date / Time No Known Allergies Allergy Verified 05/08/22 10:29 Review of Systems Review of Systems: CONSTITUTIONAL: Denies fever, chills EYES: Denies visual changes, redness, or discharge. ENT: Denies rhinorrhea, congestion, sore throat, or otalgia. CARDIOVASCULAR: Denies chest pain, palpitations, or edema. RESPIRATORY: Denies cough or dyspnea. GASTROINTESTINAL: Denies abdominal pain, nausea, vomiting, or diarrhea. GENITOURINARY: Denies dysuria or hematuria. SKIN: Denies rash or itching. MUSCULOSKELETAL: See HPI NEUROLOGIC: Denies headache, numbness, dizziness, or weakness. PSYCHIATRIC: Denies anxiety or depression. [facility] Past Medical History Medical History CVA (cerebral vascular accident) Diabetes mellitus type 2, controlled, without complications HTN (hypertension) with goal to be determined Hyperlipidemia Hypertension Surgical History Surgical History H/O cataract extraction H/O rectal polypectomy History of tonsillectomy History of total bilateral knee replacement Family History Family History Sibling Diabetes mellitus Dementia Mother Family history of malignant neoplasm of breast Family history of lung cancer Brain cancer Sibling Hypertension Father Lung disease Other Family history of arthritis Family history of lung disease Social History Social History Social History: Patient is . She lives alone. She has no children. Lifelong nonsmoker no alcohol no illicit drugs. 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 She is t
--- NOTE | 2022-09-29 18:41 | PC.NURSE ---
Upon patient's arrival to the ED the patient's bui catheter was noted to be leaking urine and the patient's colostomy bag was leaking stool and had come detached. The bui catheter was changed and a new colostomy bag fitted and applied. The patient also noted to have a very large and draining wound to her sacrum. Mepilex dressing applied.
[2022-09-29 19:31] LABS: Basophils Absolute Auto 0.2 K/mm3 (0.0-0.1); Basophils Percent Auto 1.4 % (0.2-1.2); Eosinophils Absolute Auto 0.4 K/mm3 (0-0.3); Eosinophils Percent Auto 3.5 % (0-4.4); Hematocrit 31.8 % (37.0-47.0); Immature Granulocyte Absolute 0.04 K/mm3 (0.00-0.031); Immature Granulocyte Percent A 0.3 % (0-0.5); Lymphocytes Absolute Auto 1.14 K/mm3 (0.9-3.2); Lymphocytes Percent Auto 9.7 % (18.3-44.2); Mean Corpuscular HGB Conc 31.4 g/dl (32-36); Mean Corpuscular Hemoglobin 30.3 pg (26-34); Mean Corpuscular Volume 96.4 fl (80-100); Mean Platelet Volume 9.1 fl (7.4-10.4); Monocytes Absolute Auto 0.9 K/mm3 (0.1-0.6); Monocytes Percent Auto 7.5 % (2.6-8.5); Neutrophils Absolute Auto 9.2 K/mm3 (1.3-6.7); Neutrophils Percent Auto 77.6 % (45.5-73.1); Platelet Count Result 350 k/mm3 (150-375); Red Cell Distribution Width 15.6 % (11.5-14.5); White Blood Count 11.8 K/mm3 (4.5-10.0)
[2022-09-29 20:00] LABS: Alanine Aminotransferase 19 U/L (6-35); Albumin Level 2.7 g/dL (3.5-5.1); Alkaline Phosphatase 109 U/L (38-126); Anion Gap 2 mmol/L (8-16); Aspartate Amino Transferase 28 U/L (14-36); Bilirubin,Total 0.6 mg/dL (0.2-1.3); Blood Urea Nitrogen 17 mg/dL (7-17); Calcium 8.3 mg/dL (8.4-10.2); Carbon Dioxide 29 mmol/L (22-30); Chloride 103 mmol/L (98-107); Estimated Glomerular Filt Rate > 60; Glucose 240 mg/dL (65-110); Potassium 5.5 mmol/L (3.4-5.0); Sodium 134 mmol/L (137-145)
[2022-09-29 20:01] LABS: Erythrocyte Sedimentation Rate 80 mm/hr (0-20)
[2022-09-29 20:24] LABS: CRP 13.6 mg/dL (<1.0)
[2022-09-29 20:40] LABS: Appearance Urine Turbid (Clear); pH Urine 8.5 (5.0-9.0)
[2022-09-29 20:41] LABS: Protein Urine 3+ mg/dL (Negative)
[2022-09-29 20:42] LABS: Bilirubin Urine Negative (Negative); Blood Urine Negative (Negative); Glucose Urine UA Negative (Negative); Ketones Urine Negative (Negative); Nitrate Urine Positive (Negative)
[2022-09-29 20:43] LABS: Urobilinogen Urine 0.2 mg/dL (<2.0)
[2022-09-29 20:45] LABS: Add Urine Microscopic? YES
[2022-09-29 20:51] LABS: RBC Urine None seen /hpf (0-2); WBC Urine 31-50 /hpf
[2022-09-29 20:52] LABS: Squamous Epithelial Cell Urine Rare /hpf (Few)
[2022-09-29 20:53] LABS: Bacteria Urine 4+ /hpf
[2022-09-29 20:54] LABS: Color Urine Yellow (Yellow); Leukocyte Esterase Ur 3+ LEU/UL (Negative)
[2022-09-29] MEDS: ENOXAPARIN 80 MG/0.8 ML SYRINGE SUB-Q (22:14)
--- NOTE | 2022-09-29 23:06 | PC.NURSE ---
Patient's sister called and updated on disposition back to [facility]
--- NOTE | 2022-09-29 23:37 | PC.NURSE ---
Patient report given to SILVER Llanes. All questions answered and care of patient transferred. Patient awaiting transport back to [facility].
--- NOTE | 2022-09-29 23:54 | PC.NURSE ---
Cong here for pt transport back to [facility] at this time.
== END 2022-09-30 00:16 ==
PROVIDERS: Emergency Medicine; Emergency Provider Physician Assistant; PCP Internal Medicine
DX: I82.442 Acute embolism and thrombosis of left tibial vein (principal); N39.0 Urinary tract infection, site not specified; L89.159 Pressure ulcer of sacral region, unspecified stage; D64.9 Anemia, unspecified; E87.5 Hyperkalemia; Z20.822 Contact with and (suspected) exposure to COVID-19; I10 Essential (primary) hypertension; E11.9 Type 2 diabetes mellitus without complications; E78.5 Hyperlipidemia, unspecified; Z86.73 Personal history of transient ischemic attack (TIA), and cerebral infarction without residual deficits; Z79.82 Long term (current) use of aspirin; Z98.49 Cataract extraction status, unspecified eye; Z87.19 Personal history of other diseases of the digestive system; Z96.653 Presence of artificial knee joint, bilateral; Z79.84 Long term (current) use of oral hypoglycemic drugs
CPT/HCPCS: 36415; 51702; 80053; 81001; 82948; 85025; 85652; 86140; 87086; 87088; 93971; 96365; 96372; 99284; J0696; J1650; U0003; U0005

== ENCOUNTER 2022-10-12 22:00 | Emergency (ER) | payer MEDICARE, SELFPAY ==
--- NOTE | ~2022-10-12 | XR_ITS ---
EXAMINATION: XR tibia fibula RT 2V DATE: 10/12/2022 22:43 INDICATION: Right lower leg pain with anterior wound post fall TECHNIQUE: AP and lateral views of the right tibia/fibula were obtained. COMPARISON: None. FINDINGS: Right total knee arthroplasty with patellar resurfacing which appears well seated in near-anatomic al ignment. No fracture. Mild polyarticular osteoarthritis at the right ankle and visualized mid and hin dfoot. Prominent Achilles and plantar calcaneal spurs. Additional small enthesopathic ossicles in the Achilles tendon approximately 4 cm proximal to the calcaneal insertion which suggests sequela of chr onic trauma. Likely small right knee joint effusion. Subcutaneous edema about the right lower leg wit h more prominent soft tissue swelling about the lateral malleolus. No radiopaque foreign bodies. IMPRESSION: 1. No acute osseous abnormality or radiopaque foreign bodies. 2. Chronic degenerative, post traumatic and postoperative changes as detailed above. Reviewed, dictated and finalized at location A. ENTER'S ASSISTANT IMPRESSION: 1. No acute osseous abnormality or radiopaque foreign bodies. 2. Chronic degenerative, post traumatic and postoperative changes as detailed a bria.
--- NOTE | ~2022-10-12 | CT_ITS ---
EXAMINATION: CT cervical spine wo con DATE: 10/12/2022 22:56 INDICATION: Neck injury. TECHNIQUE: Computed tomography (CT) of the cervical spine was performed without intravenous contrast. Automated exposure control and iterative reconstruction technique were employed. The dose-length pro duct was 194.30 mGy-cm. COMPARISON: Neck CTA 10/12/2019 FINDINGS: There is kyphosis of cervical spine. There is a compression fracture of T1 with 1/5 loss of height, new from 10/12/2019. There is mildly decreased disc height at C2-C3. There is severely decreas ed disc height at C4-C5 and C5-C6 with interbody fusion. The following disc levels are specifically d iscussed: C2-C3: There is severe right and mild left uncovertebral joint osteoarthritis. There is severe right and moderate left facet joint osteoarthritis. There is mild right neural foraminal stenosis. There is no central canal stenosis. C3-C4: There is severe bilateral uncovertebral joint osteoarthritis. There is moderate right and keyla re left facet joint osteoarthritis. There is mild right and moderate left neural foraminal stenosis. There is no central canal stenosis. C4-C5: There is mild bilateral uncovertebral joint hypertrophy. There is ankylosis of the facet joint s with mild hypertrophy. There is mild right neural foraminal stenosis. There is mild central canal s tenosis. C5-C6: There is mild bilateral uncovertebral joint hypertrophy. There is ankylosis of the facet joint s with mild hypertrophy. There is no neural foraminal stenosis. There is mild central canal stenosis. C6-C7: There is mild right and severe left uncovertebral joint osteoarthritis. There is moderate righ t and severe left facet joint osteoarthritis. There is mild left neural foraminal stenosis. There is mild central canal stenosis. C7-T1: There is no uncovertebral joint osteoarthritis. There is severe bilateral facet joint osteoart hritis. There is mild bilateral neural foraminal stenosis. There is no central canal stenosis. IMPRESSION: 1. Age-indeterminate T1 compression fracture, new from 10/12/2019. 2. Moderate cervical spondylosis. 3. Anterior and posterior fusion from C4 to C6. Reviewed, dictated and finalized at location D. MANAGER
--- NOTE | ~2022-10-12 | CT_ITS ---
EXAMINATION: CT brain wo con DATE: 10/12/2022 22:56 INDICATION: Head injury. TECHNIQUE: Computed tomography (CT) of the head was performed without intravenous contrast. The mA wa s adjusted according to patient size. Iterative reconstruction technique was employed. The dose-lengt h product was 605.33 mGy-cm. COMPARISON: Head CT 10/12/2019, brain MRI 10/13/2019 FINDINGS: There are old infarcts in the cerebellum bilaterally. There are old infarcts in the right p arietal and occipital lobes. There is an old infarct in left frontal lobe. There are scattered areas of low attenuation in the cerebral white matter. There is no intracranial hemorrhage, acute infarctio n, or abnormal intracranial mass lesion. The ventricles are normal in size. There is mild mucosal thi ckening in the paranasal sinuses. There is a small right mastoid effusion. IMPRESSION: 1. Old infarcts in the cerebellum, right parietal and occipital lobes, and left frontal lobe. 2. Worsened moderate nonspecific cerebral white matter disease, which likely represents chronic small vessel ischemic disease. Reviewed, dictated and finalized at location D. OMER MARKETING ASSISTANT IMPRESSION: 1. Old infarcts in the cerebellum, right parietal and occipital lobes, and left frontal lobe. 2. Worsened moderate nonspecific cerebral white matter disease, which likely re presents chronic small vessel ischemic disease.
--- NOTE | ~2022-10-12 | XR_ITS ---
EXAMINATION: XR elbow RT min 3V DATE: 10/12/2022 22:42 INDICATION: Right elbow pain and posterior wound post fall TECHNIQUE: Anteroposterior, two oblique and lateral views of the right elbow were obtained. COMPARISON: None. FINDINGS: Alignment is normal. No fracture or joint effusion. Mild osteoarthritis at the right elbow. Soft tiss ues are unremarkable. No radiopaque foreign bodies. IMPRESSION: 1. Mild osteoarthritis at the right elbow. No acute osseous abnormality. Reviewed, dictated and finalized at location A. IDE OPERATOR
[2022-10-12 22:02] VITALS: BP 132/73; PULSE 108; RESP 18; TEMP 36.8; O2SAT 99
[2022-10-12 22:05] VITALS: RESP 16; O2SAT 100
[2022-10-12 22:07] VITALS: BP 132/73; PULSE 123; RESP 21; O2SAT 100
--- NOTE | 2022-10-12 22:16 | ED.GENADULT ---
HPI - General Adult General Chief complaint: Fall Stated complaint: FALL, SKIN TEAR TO ELBOW Time Seen by Provider: 10/12/22 22:08 History of Present Illness HPI narrative: Patient 72-year-old female who presents the emergency department with chief complaint of fall. Patient was getting up and lost her balance and fell. The patient denies syncope reports that she did not strike her head but the patient does report that she is on a blood thinner and takes a DOAC. Patient reports to a skin tear in her right elbow and reports to bruising present on her right lower extremity below her knee. The patient reports she is really not having any significant pain at this time. Related Data Home Medications Medication Instructions Recorded Confirmed Aspir-Low 81 mg PO DAILY 10/12/19 05/08/22 calcium carbonate 600 mg-vitamin cap PO 11/21/20 05/08/22 D3 12.5 mcg (500 unit) capsule (Calcium 600 with Vitamin D3) ferrous sulfate 325 mg (65 mg 325 mg PO DAILY 11/21/20 05/08/22 iron) tablet cholecalciferol (vitamin D3) 125 125 mcg PO DAILY 02/14/21 05/08/22 mcg (5,000 unit) capsule cyanocobalamin (vitamin B-12) 1,000 mcg PO ONCE 02/14/21 05/08/22 1,000 mcg capsule Allergies Allergy/AdvReac Type Severity Reaction Status Date / Time amoxicillin AdvReac Rash Verified 10/12/22 22:04 sulfamethoxazole AdvReac Rash Verified 10/12/22 22:04 [From Bactrim] trimethoprim [From Bactrim] AdvReac Rash Verified 10/12/22 22:04 Review of Systems Review of Systems: A 10 system review of systems was completed on the patient and is negative except for what is stated in the HPI. Nursing and ancillary documentation was reviewed. [facility] Past Medical History Medical History CVA (cerebral vascular accident) Diabetes mellitus type 2, controlled, without complications HTN (hypertension) with goal to be determined Hyperlipidemia Hypertension Surgical History Surgical History H/O cataract extraction H/O rectal polypectomy History of tonsillectomy History of total bilateral knee replacement Family History Family History Sibling Diabetes mellitus Dementia Mother Family history of malignant neoplasm of breast Family history of lung cancer Brain cancer Sibling Hypertension Father Lung disease Other Family history of arthritis Family history of lung disease Social History Social History Social History: Patient is . She lives alone. She has no children. Lifelong nonsmoker no alcohol no illicit drugs. 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 Smoking status: Never smoker Second hand tobacco smoke exposure: Yes Alcohol intake: never Substance use: never Substance use type: does not use Living arrangements: alone Occupation/Education: retired Gender identity (if verbalized by the patient): Female Exam Narrative: GENERAL: Well-appearing, well-nourished, and in no acute distress. HEAD: Normocephalic, atraumatic. EYES: PERRLA and EOMI. ENT: Nares clear, no rhinorrhea or epistaxis. Mucous membranes moist. NECK: Supple. CHEST: Clear to auscultation. No respiratory distress. HEART: Regular rate and rhythm. No murmur heard. Normal peripheral pulses. ABDOMEN: Soft, nontender, nondistended, normal active bowel sounds. EXTREMITIES: Normal range of motion. No edema. SKIN: Warm, dry, no rash. There is a skin tear present to the right elbow, there is a contusion present to the right tib-fib region on the dorsum of the right lower extremity NEURO: No focal deficits. Alert and oriented x3. PSYCH: Normal mood and
[2022-10-12 23:15] VITALS: BP 105/55; PULSE 94; RESP 16; O2SAT 100
[2022-10-12 23:31] VITALS: O2SAT 100
[2022-10-12 23:52] VITALS: O2SAT 100
[2022-10-13 00:01] VITALS: O2SAT 100
[2022-10-13 00:20] VITALS: O2SAT 96
[2022-10-13 00:31] VITALS: BP 126/66
[2022-10-13 00:52] VITALS: BP 115/63
== END 2022-10-13 01:09 ==
PROVIDERS: Emergency Provider Emergency Medicine; PCP Internal Medicine
DX: S51.011A Laceration without foreign body of right elbow, initial encounter (principal); S80.11XA Contusion of right lower leg, initial encounter; E11.9 Type 2 diabetes mellitus without complications; I10 Essential (primary) hypertension; E78.5 Hyperlipidemia, unspecified; Z86.73 Personal history of transient ischemic attack (TIA), and cerebral infarction without residual deficits; W01.0XXA Fall on same level from slipping, tripping and stumbling without subsequent striking against object, initial encounter
CPT/HCPCS: 70450; 72125; 73080; 73590; 99284

== ENCOUNTER 2022-10-20 13:38 | Inpatient (IN) | payer MEDICARE, SELFPAY ==
[2022-10-20] VITALS (54 sets, daily range): BP systolic 72–151; BP diastolic 34–122; PULSE 67–120; RESP 0–22; TEMP 36.6; O2SAT 86–100
--- NOTE | ~2022-10-20 | CT_ITS ---
EXAMINATION: CTA brain carotid DATE: 10/20/2022 16:42 INDICATION: cerebellar infarct TECHNIQUE: Computed tomographic angiography (CTA) of the head and neck was performed with 100 mL Omni paque-350 intravenous contrast. Automated exposure control and iterative reconstruction technique wer e employed. The dose-length product was 1184.11 mGy-cm. Maximum intensity projection and volume rende red 3D-reconstructions were created by the technologist on a separate workstation. COMPARISON: CT brain, same date. FINDINGS: CTA HEAD: No large vessel occlusion, aneurysm, high flow vascular malformation, nidus or extravasation. Persist ent circulation on the left. Hypoplastic right P1 segment. Slightly narrowed/hypoplastic left A 1 segment. The communicating arteries are patent. Calcified plaque in the bilateral cavernous carotid s and right intradural vertebral artery, without significant stenosis. Hypoenhancement in the right c erebellar hemisphere in the territory of the right superior cerebellar artery. Distal branches of the right superior cerebellar artery are poorly visualized and may be occluded. Patent left superior cer ebellar artery. AICA origins poorly seen which may be due to technical factors and small size. Patent bilateral PICAs. CTA NECK: Aortic arch and proximal great vessels: Atherosclerotic calcifications at the visualized aortic arch and proximal great vessels. Right common carotid, carotid bifurcation, and internal carotid artery: Calcified plaque at the bifur cation.There is 0% stenosis of the proximal right internal carotid artery relative to normal distal a rtery lumen diameter (NASCET criteria). Left common carotid, carotid bifurcation, and internal carotid artery: Calcified plaque at the bifurc ation.There is 0% stenosis of the proximal left internal carotid artery relative to normal distal art krystyna lumen diameter (NASCET criteria). Vertebral arteries: No significant plaque or stenosis. Other findings: Dilated central pulmonary arteries as can be seen with pulmonary arterial hypertensio n. Vertebral body fusion spanning C4-C6. Degenerative changes in the spine. IMPRESSION: 1. No large vessel occlusion or significant carotid or vertebral stenosis. 2. Likely occlusions of distal branches of the right superior cerebellar artery. 3. Acute right cerebellar artery infarct, in the territory of the right superior cerebellar artery. Reviewed, dictated and finalized at location K. IMPRESSION: 1. No large vessel occlusion or significant carotid or vertebral stenosis. 2. Likely occlusions of distal branches of the right superior cerebellar artery . 3. Acute right cerebellar artery infarct, in the territory of the right superio r cerebellar artery.
--- NOTE | ~2022-10-20 | CT_ITS ---
EXAMINATION: CT brain wo con DATE: 10/20/2022 15:16 INDICATION: ams . TECHNIQUE: Computed tomography (CT) of the head was performed repeating this intravenous contrast. Th e mA was adjusted according to patient size. Iterative reconstruction technique was employed. The dos e-length product was 605.33 mGy-cm. COMPARISON: 10/12/2022. FINDINGS: No acute intracranial hemorrhage or extra-axial fluid collection. No hydrocephalus, mass, or herniation. Hypodense parenchyma in the right cerebellar hemisphere with loss of the camp-white interface. Unremarkable dural venous sinus attenuation. No acute osseous abnormality. Right mastoid effusion, the remaining aerated spaces are clear aerated spaces are clear. Moderate atrophy and chronic white matter change. Old focal infarcts in the right frontal lobe, right parietal lobe, right occipital lobe, right basal ganglia, and bilateral cerebellar hemispheres. Athe rosclerotic intracranial calcification. Bilateral lens replacements. IMPRESSION: Acute right cerebellar infarct. Results reported telephonically to Dr. Macias by Dr. Zuleta at 3:23 PM on 10/20/2022. Reviewed, dictated and finalized at location K. IMPRESSION: Acute right cerebellar infarct. Results reported telephonically to Dr. Macias by Dr. Zuleta at 3:23 PM on 2022.
--- NOTE | ~2022-10-20 | MR_ITS ---
EXAMINATION: MR brain/brain stem wo/w con DATE: 10/21/2022 15:59 INDICATION: Cerebrovascular accident. TECHNIQUE: Magnetic resonance imaging (MRI) of the brain and brainstem was performed without and with 14 mL MultiHance intravenous contrast. COMPARISON: Brain MRI 10/13/2019, head CT 10/20/2022 FINDINGS: There is an acute infarct in superior right cerebellum. There is an acute infarct in sleever ior right midbrain. There are old infarcts in the bilateral cerebellum, right occipital lobe, and lef t frontal lobe. There are scattered areas of nonspecific increased T2-weighted signal intensity in th e cerebral white matter. There is no intracranial hemorrhage or abnormal mass lesion. The ventricles are normal in size. There is mild mucosal thickening in the paranasal sinuses. There are likely culp es of ocular lens replacement surgeries. There is a small right mastoid effusion. IMPRESSION: 1. Acute infarcts in superior right cerebellum and posterior right midbrain. 2. Old infarcts in the bilateral cerebellum, right occipital lobe, and left frontal lobe. 3. Moderate nonspecific cerebral white matter disease, which likely represents chronic small vessel i schemic disease. Reviewed, dictated and finalized at location A. IMPRESSION: 1. Acute infarcts in superior right cerebellum and posterior right midbrain. 2. Old infarcts in the bilateral cerebellum, right occipital lobe, and left fro ntal lobe. 3. Moderate nonspecific cerebral white matter disease, which likely represents chronic small vessel ischemic disease.
--- NOTE | ~2022-10-20 | XR_ITS ---
. EXAMINATION: XR barium swallow modified DATE: 10/21/2022 13:24 INDICATION: Dysphagia. TECHNIQUE: The patient was given barium-containing material of multiple consistencies to swallow by t chandu speech pathologist while I performed fluoroscopy. Fluoroscopy exposure time was 1.3 minutes. The n umber of fluoroscopy images saved to the PACS was 1. Dose-area product was 1.125 Gy-cm^2. FINDINGS: There is reduced laryngeal elevation, reduced tongue base retraction, and vallecular residue. There i s laryngeal penetration with uncontrolled thin liquids and nectar thick liquids. IMPRESSION: 1. Laryngeal penetration with uncontrolled thin liquids and nectar thick liquids. 2. Please refer to the speech therapy report for recommendations. Reviewed, dictated and finalized at location A. IMPRESSION: 1. Laryngeal penetration with uncontrolled thin liquids and nectar thick liquid s. 2. Please refer to the speech therapy report for recommendations.
--- NOTE | ~2022-10-20 | XR_ITS ---
Portable chest x-ray Comparison: 10/12/2019 Clinical History: Altered mental status, weakness Findings: Lungs are clear, without focal consolidation or pleural effusion. Cardiomediastinal silho uette is stable. Bones and soft tissues are unremarkable. Impression: Clear lungs. Reviewed, dictated and finalized at location . Impression: Clear lungs.
--- NOTE | 2022-10-20 13:49 | ECG_ITS ---
Measurements Intervals [place] Rate: 116 P: 73 [place]: 140 QRS: 93 QRSD: 86 T: 46 QT: 310 QTc: 431 Interpretive Statements SINUS TACHYCARDIA FREQUENT VENTRICULAR PREMATURE COMPLEXES RIGHT AXIS DEVIATION LOW QRS VOLTAGE IN LIMB LEADS BORDERLINE ST-T WAVE ABNORMALITY- INF/HIGH LAT LEADS BASELINE ARTIFACT- I, II, III, AVR, AVL, AVF ABNORMAL ECG ABNORMAL ECG COMPARED TO ECG 10/12/2019 12:10:16 SINUS TACHYCARDIA NOW PRESENT Electronically Signed On 10-20-2022 16:28:45 CDT by Jarvis Payne D.O.
[2022-10-20 14:09] LABS: Appearance Urine Clear (Clear); Bilirubin Urine Negative (Negative); Blood Urine Negative (Negative); Color Urine Yellow (Yellow); Glucose Urine UA Negative (Negative); Ketones Urine Negative (Negative); Leukocyte Esterase Ur Negative LEU/UL (Negative); Nitrate Urine Negative (Negative); Protein Urine Negative (Negative); Specific Grav Ur 1.014 (1.001-1.035); Urobilinogen Urine 0.2 mg/dL (<2.0)
[2022-10-20 14:10] LABS: Basophils Absolute Auto 0.1 K/mm3 (0.0-0.1); Eosinophils Absolute Auto 0.3 K/mm3 (0-0.3); Eosinophils Percent Auto 3.3 % (0-4.4); Hematocrit 31.4 % (37.0-47.0); Hemoglobin 9.8 g/dL (12.0-15.0); Immature Granulocyte Absolute 0.06 K/mm3 (0.00-0.031); Immature Granulocyte Percent A 0.8 % (0-0.5); Lymphocytes Absolute Auto 1.22 K/mm3 (0.9-3.2); Lymphocytes Percent Auto 15.5 % (18.3-44.2); Mean Corpuscular HGB Conc 31.2 g/dl (32-36); Mean Corpuscular Hemoglobin 29.6 pg (26-34); Mean Corpuscular Volume 94.9 fl (80-100); Mean Platelet Volume 9.1 fl (7.4-10.4); Monocytes Absolute Auto 0.8 K/mm3 (0.1-0.6); Monocytes Percent Auto 9.6 % (2.6-8.5); Neutrophils Absolute Auto 5.5 K/mm3 (1.3-6.7); Neutrophils Percent Auto 69.8 % (45.5-73.1); Platelet Count Result 399 k/mm3 (150-375); Red Blood Count 3.31 M/mm3 (4.2-5.4); Red Cell Distribution Width 16.4 % (11.5-14.5); White Blood Count 7.9 K/mm3 (4.5-10.0)
[2022-10-20 14:13] LABS: Add Urine Microscopic? NO
[2022-10-20 14:20] LABS: Alanine Aminotransferase 15 U/L (6-35); Albumin Level 2.7 g/dL (3.5-5.1); Alkaline Phosphatase 76 U/L (38-126); Anion Gap 4 mmol/L (8-16); Aspartate Amino Transferase 30 U/L (14-36); Bilirubin,Total 0.4 mg/dL (0.2-1.3); Blood Urea Nitrogen 18 mg/dL (7-17); Calcium 8.2 mg/dL (8.4-10.2); Carbon Dioxide 28 mmol/L (22-30); Chloride 96 mmol/L (98-107); Estimated CRCL calculation 54 ml/min; Estimated Glomerular Filt Rate > 60; Glucose 221 mg/dL (65-110); Potassium 4.7 mmol/L (3.4-5.0); Sodium 128 mmol/L (137-145)
[2022-10-20 14:22] LABS: INR 1.5; Prothrombin Time 17.2 Seconds (11.1-14.7)
[2022-10-20 14:23] LABS: Partial Thromboplastin Time 41.7 SECONDS (22.3-36.8)
--- NOTE | 2022-10-20 14:27 | ED.GENADULT ---
HPI - General Adult General Chief complaint: Unspecified Stated complaint: eyes not tracking during pt History of Present Illness HPI narrative: Patient is a 72-year-old female with a history of hypertension, hyperlipidemia, dementia presenting with altered mental status. Patient was noted to be gazing off and minimally responsive at PT today so EMS was called. For EMS she was alert and oriented. On arrival, the patient is resting comfortably. She denies current complaints. States that she thinks she is here because she was confused earlier. She denies any pain. Denies shortness of breath. Denies focal numbness or weakness. Related Data Home Medications Medication Instructions Recorded Confirmed Aspir-Low 81 mg PO DAILY 10/12/19 05/08/22 calcium carbonate 600 mg-vitamin cap PO 11/21/20 05/08/22 D3 12.5 mcg (500 unit) capsule (Calcium 600 with Vitamin D3) ferrous sulfate 325 mg (65 mg 325 mg PO DAILY 11/21/20 05/08/22 iron) tablet cholecalciferol (vitamin D3) 125 125 mcg PO DAILY 02/14/21 05/08/22 mcg (5,000 unit) capsule cyanocobalamin (vitamin B-12) 1,000 mcg PO ONCE 02/14/21 05/08/22 1,000 mcg capsule Allergies Allergy/AdvReac Type Severity Reaction Status Date / Time amoxicillin AdvReac Rash Verified 10/12/22 22:04 sulfamethoxazole AdvReac Rash Verified 10/12/22 22:04 [From Bactrim] trimethoprim [From Bactrim] AdvReac Rash Verified 10/12/22 22:04 Review of Systems Review of Systems: All systems reviewed & are unremarkable except as noted in HPI and below PMFSH Past Medical History Medical History CVA (cerebral vascular accident) Diabetes mellitus type 2, controlled, without complications HTN (hypertension) with goal to be determined Hyperlipidemia Hypertension Surgical History Surgical History H/O cataract extraction H/O rectal polypectomy History of tonsillectomy History of total bilateral knee replacement Family History Family History Sibling Diabetes mellitus Dementia Mother Family history of malignant neoplasm of breast Family history of lung cancer Brain cancer Sibling Hypertension Father Lung disease Other Family history of arthritis Family history of lung disease Social History Social History Social History: Patient is . She lives alone. She has no children. Lifelong nonsmoker no alcohol no illicit drugs. 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 Smoking status: Never smoker Second hand tobacco smoke exposure: Yes Alcohol intake: never Substance use: never Substance use type: does not use Living arrangements: alone Occupation/Education: retired Gender identity (if verbalized by the patient): Female Exam Narrative: GENERAL: Chronically ill-appearing elderly female laying in bed in no acute distress HEAD: Normocephalic, atraumatic. EYES: PERRLA and EOMI. ENT: Nares clear, no rhinorrhea or epistaxis. Mucous membranes dry NECK: Supple. CHEST: Clear to auscultation. No respiratory distress. HEART: Regular rate and rhythm. ABDOMEN: Soft, nontender, ostomy in place EXTREMITIES: Normal range of motion. Bilateral pitting edema lower extremities with weeping of serous fluid; pressure ulcer left lateral lower extremity with necrotic center SKIN: Warm, dry, no rash. Large sacral ulcer down to muscle, no obvious necrosis NEURO: No focal deficits. Alert and oriented x3. PSYCH: Pleasant and cooperative Course Vital Signs Vital signs: Vital Signs Temperature 97.9 F 10/20/22 13:34 Pulse Rate 114 H 10/20/22 13:34 Respiratory Rate 17 10/20/22 13:34 Blood
[2022-10-20] MEDS: SODIUM CHLORIDE 0.9% IV 1,000 ML 999 ML IV CONT (14:36)
[2022-10-20 14:58] LABS: Troponin I < 0.012 ng/mL (0.000-0.034)
[2022-10-20 15:05] LABS: Lactic Acid Reflex 1.9 mmol/L (0.7-2.0)
[2022-10-20] MEDS: SODIUM CHLORIDE 0.9% IV 1,000 ML 999 ML (15:43)
--- NOTE | 2022-10-20 16:32 | PM.IMHP ---
H&P: HPI History of Present Illness Date/Time: 10/20/22 16:32 Chief Complaint: Confusion Narrative: This is a 72-year-old female patient who is very hard of hearing. She resides at [facility] and has a history of hypertension, hyperlipidemia and dementia. The patient was noted to be gazing off and minimally responsive at physical therapy today. EMS was activated. For EMS she was alert and orientated. Patient denies any discomfort no focal weakness. Her H&H is 9.8 and 31.4. Her sodium is 128. Troponin nonreactive x3. Urine was negative. Head and neck CTA was read as following?No large vessel occlusion or significant carotid or vertebral stenosis. 2. Likely occlusions of distal branches of the right superior cerebellar artery. 3. Acute right cerebellar artery infarct, in the territory of the right superior cerebellar artery. Head CT was read a sAcute right cerebellar infarct. The patient was given IV fluids, cefepime vancomycin in the emergency room. Chest x-ray was read as clear lungs. The patient was treated for possible cellulitis to the sacral wound and heel. The patient is being admitted to inpatient status on the date of service of 10/20/2022. Review of Systems Review of Systems: All systems reviewed & are unremarkable except as noted in HPI and below Constitutional: Constitutional: Reports as per HPI and Reports no additional constitutional complaints Eyes: Eyes: Reports as per HPI and Reports no additional eye complaints ENT: Reports system reviewed and no additional complaints, except as documented and Reports Normal hearing present Cardiovascular: Cardiovascular: Reports no additional cardiovascular complaints Respiratory: Respiratory: Reports no additional respiratory complaints and Reports no additional respiratory complaints Gastrointestinal: Gastrointestinal: Reports as per HPI and Reports no additional gastrointestinal complaints Musculoskeletal: Musculoskeletal: Reports no additional musculoskeletal complaints Integumentary/Breasts: Skin/Breast: Reports system reviewed and no additional complaints, except as docu and Reports as per HPI Neurologic: Reports system reviewed and no additional complaints, except as documented, Reports as per HPI and Reports Normal hearing present Psychiatric: Psychiatric: Reports no additional psychiatric complaints and Reports as per HPI Endocrine: Endocrine: Reports no additional endocrine complaints Hematologic/Lymphatic: Hematologic/Lymphatic: Reports no additional hematologic/lymphatic complaints Allergic/Immunologic: Allergic/Immunologic: Reports no additional allergic/immunologic complaints PMFSH Past Medical History Medical History CVA (cerebral vascular accident) Diabetes mellitus type 2, controlled, without complications HTN (hypertension) with goal to be determined Hyperlipidemia Hypertension Surgical History Surgical History (Updated 10/20/22 @ 23:53 by Tete Costello NP) H/O cataract extraction H/O rectal polypectomy H/O: hysterectomy History of tonsillectomy History of total bilateral knee replacement Family History Family History Sibling Diabetes mellitus Dementia Mother Family history of malignant neoplasm of breast Family history of lung cancer Brain cancer Sibling Hypertension Father Lung disease Other Family history of arthritis Family history of lung disease Social History Social History (Updated 10/20/22 @ 23:54 by Tete Costello NP) Social History: Patient is . She stated that she lives with brother . However it was reported that the patient is currently at [facility]. She has no children. Lifelong nonsmoker no alcohol no illicit drugs. 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
[2022-10-20 17:41] LABS: Troponin I < 0.012 ng/mL (0.000-0.034)
[2022-10-20 21:01] LABS: Troponin I 0.017 ng/mL (0.000-0.034)
[2022-10-21] VITALS (13 sets, daily range): BP systolic 108–137; BP diastolic 36–67; PULSE 87–109; RESP 14–16; TEMP 36.1–36.8; O2SAT 94–100; BMI 29.1; BMI 10.0
--- NOTE | 2022-10-21 | ECHO_ITS ---
Patient Info Name: Makenzie Jeter Overfelt Age: 72 years : 1950 Gender: Female Ht: 64 in Wt: 166 lbs BSA: 1.87 m2 HR: 101 bpm BP: 137 / 67 mmHg Heart Rhythm: Sinus Rhythm Technical Quality: Fair Exam Date: 10/21/2022 9:57 AM Exam Location: [facility] Pulmonary Patient Status: Inpatient Admit Date: 10/20/2022 Staff Ordering Physician: Tete Costello NP Rail Car Loader: Angy Scott RDCS Attending Provider: Thee Waters MD Referring Physician: Trang SCHMIDT; Exam Type: CA echo doppler w bubble study Study Info Indications - cva Complete two-dimentional, color flow and Doppler transthoracic echocardiogram is performed with agitated saline and with contrast to opacify the left ventricle and to improve the delineation of the left ventricle endocardial borders. Contrast/Agitated Saline Contrast/Ag. Saline: Definity Amount: 3.00 ml Administered By: Angy Scott RDCS Existing IV Access: Yes IV Access Condition: patent with no signs of infiltration Contrast/Ag. Saline: Agitated Saline Amount: 20.00 ml Administered By: Iman Haq RDCS Existing IV Access: Yes IV Access Condition: patent with no signs of infiltration Summary 1. Left ventricular chamber dimension is normal. 2. Left ventricular systolic function is hyperdynamic, estimated at >70%. 3. There is moderately increased left ventricular wall thickness. 4. The left ventricular diastolic function is grade I diastolic dysfunction. 5. Right ventricular systolic function is normal. 6. Intact interatrial septum visualized by color flow and agitated saline imaging. Negative bubble study. 7. There is mild mitral valve regurgitation. 8. There is mild tricuspid valve regurgitation. Left Ventricle Left ventricular chamber dimension is normal. Left ventricular systolic function is hyperdynamic, estimated at >70%. There is moderately increased left ventricular wall thickness. The left ventricular diastolic function is grade I diastolic dysfunction. Right Ventricle Right ventricular chamber dimension is normal. Right ventricular systolic function is normal. Left Atria Left atrial chamber dimension is normal. Right Atria Right atrial chamber dimension is normal. Atrial Septum Intact interatrial septum visualized by color flow and agitated saline imaging. Negative bubble study. Aortic Valve The aortic valve is probable trileaflet. There is no aortic valve stenosis. There is no aortic valve regurgitation. There is mild aortic valve calcification. Pulmonic Valve The pulmonic valve is not well visualized. Mitral Valve The mitral valve has normal leaflets. There is no mitral valve stenosis. There is mild mitral valve regurgitation. Tricuspid Valve There is mild tricuspid valve regurgitation. Pericardium/Pleural There is no pericardial effusion. Inferior Vena Cava Normal inferior vena cava with >50% collapse upon inspiration consistent with normal right atrial pressure, 3 mmHg. Aorta The aortic root size at the sinus of Valsalva is normal. Left Ventricular Outflow Tract Name Value Normal LVOT 2D LVOT Diame
[2022-10-21] MEDS: SODIUM CHLORIDE 0.9% IV 1,000 ML 75 ML IV CONT (01:05)
[2022-10-21] MEDS: metroNIDAZOLE 500 MG/ISO 100ML 500 MG/100 ML BAG 100 MG IVPB ×2 (01:05→16:36)
[2022-10-21 01:09] LABS: Glucose Point of Care 148 mg/dl (65-105)
--- NOTE | 2022-10-21 01:33 | ADMGEN ---
This patient, Makenzie Rojo, was admitted to IMU Room 214-01 at 0040 on 10/21/2022. Patient/family oriented to hospital policies and general routines including ID bracelet, bed and alarms, visiting hours, pain management, procedures, bathroom and other care routines, personal items, smoking policy, room service/diet, and visiting hours. Information on how to activate the Rapid Response Team has been discussed. Patient/Family are encouraged to report perceived risks to care and to ask questions if they do not understand what they are told or what they should do.
[2022-10-21 04:12] LABS: Sodium 130 mmol/L (137-145)
[2022-10-21 05:57] LABS: Alanine Aminotransferase 14 U/L (6-35); Albumin Level 2.5 g/dL (3.5-5.1); Alkaline Phosphatase 71 U/L (38-126); Anion Gap 4 mmol/L (8-16); Aspartate Amino Transferase 25 U/L (14-36); Bilirubin,Total 0.5 mg/dL (0.2-1.3); Blood Urea Nitrogen 14 mg/dL (7-17); Calcium 7.8 mg/dL (8.4-10.2); Carbon Dioxide 26 mmol/L (22-30); Chloride 102 mmol/L (98-107); Estimated CRCL calculation 62 ml/min; Estimated Glomerular Filt Rate > 60; Glucose 202 mg/dL (65-110); Magnesium 1.3 mg/dL (1.6-2.3); Potassium 4.7 mmol/L (3.4-5.0); Sodium 132 mmol/L (137-145)
[2022-10-21 06:01] LABS: Hemoglobin A1C 6.5 % (<5.7)
[2022-10-21 06:07] LABS: Lactic Acid Reflex 1.3 mmol/L (0.7-2.0)
[2022-10-21 06:51] LABS: Glucose Point of Care 197 mg/dl (65-105)
--- NOTE | 2022-10-21 10:35 | WPDNEURCNPN ---
Assessment and Plan Assessment and plan (1) CVA (cerebral vascular accident): Code(s): I63.9 - Cerebral infarction, unspecified Status: Chronic (2) Dementia: Qualifiers: Dementia behavioral disturbance: without behavioral disturbance Dementia type: unspecified type Qualified Code(s): F03.90 - Unspecified dementia without behavioral disturbance Code(s): F03.90 - Unspecified dementia, unspecified severity, without behavioral disturbance, psychotic disturbance, mood disturbance, and anxiety Status: Acute (3) Hypertension: Qualifiers: Hypertension type: essential hypertension Qualified Code(s): I10 - Essential (primary) hypertension Code(s): I10 - Essential (primary) hypertension Status: Chronic (4) Hyperlipidemia: Qualifiers: Hyperlipidemia type: mixed hyperlipidemia Qualified Code(s): E78.2 - Mixed hyperlipidemia Code(s): E78.5 - Hyperlipidemia, unspecified Status: Chronic (5) Diabetes mellitus type 2, controlled, without complications: Qualifiers: Diabetes mellitus long-term insulin use: without long-term use Qualified Code(s): E11.9 - Type 2 diabetes mellitus without complications Code(s): E11.9 - Type 2 diabetes mellitus without complications Status: Acute Plan Makenzie Rojo is a 72 year old female with a history of prior stroke, HTN, HLD, DM presenting due to decreased responsiveness. She was found to have a right cerebellar stroke secondary to right SCA artery occlusion. - Start Aspirin and Plavix x 3 months, then aspirin monotherapy - MRI brain w/o contrast - Surface echocardiogram Consult date: 10/21/22 Reason for consult: Acute stroke HPI: Makenzie Rojo is a 72 year old female with a history of prior stroke, HTN, HLD, DM presenting due to decreased responsiveness. Patient was brought in from [facility] after she was noted to be gazing off and minimally responsive during physical therapy. EMS was called and by the time they arrived she was alert and oriented. In the ED her CT head showed concern for new infarct in the R cerebellar hemisphere. CTA showed likely occlusions of distal branches of the right superior cerebellar artery. There was also concern for possible cellulitis to the sacral wound and heel so she was started on IV antibiotics and admitted. Her last LDL is from April 2022 and is 62. Most recent HgbA1c from this admission is 6.5. Patient denies any concerns this morning. Review of Systems Constitutional: Constitutional: Reports no additional constitutional complaints Eyes: Eyes: Reports no additional eye complaints ENT: Reports system reviewed and no additional complaints, except as documented Cardiovascular: Cardiovascular: Reports no additional cardiovascular complaints Respiratory: Respiratory: Reports no additional respiratory complaints Gastrointestinal: Gastrointestinal: Reports no additional gastrointestinal complaints Genitourinary: Genitourinary: Reports no additional female genitourinary complaints Musculoskeletal: Musculoskeletal: Reports no additional musculoskeletal complaints Integumentary/Breasts: Skin/Breast: Reports system reviewed and no additional complaints, except as docu Neurologic: Reports as per HPI Psychiatric: Psychiatric: Reports no additional psychiatric complaints PMFSH Past Medical History Medical History CVA (cerebral vascular accident) Diabetes mellitus type 2, controlled, without complications HTN (hypertension) with goal to be determined Hyperlipidemia Hypertension Surgical History Surgical History H/O cataract extraction H/O rectal polypectomy H/O: hysterectomy History of tonsillectomy History of total bilateral knee replacement Family History Family History (Reviewed 10/21/22 @ 12:19 by Rosaura
[2022-10-21] MEDS: PERFLUTREN LIPID MICROSPHERES 1.5 ML VIAL DILUTED TO 10 ML TOTAL VOLUME IV PUSH (11:36)
--- NOTE | 2022-10-21 11:36 | IVDEFINITY ---
Prior to administration of IV Definity the patient was educated on the risks and benefits of the imaging enhancing agent including potential adverse side effects. The patient verbalized understanding. Allergies were verified. No exclusion criteria were identified and at least one of the following inclusion criteria were met: 1) physician request, 2) patient technically difficult to image (per the [place] [employer] guidelines of two or more segments not discernable within the apical view), or 3) questionable left ventricular function. ?
--- NOTE | 2022-10-21 11:41 | PM.IMPN ---
Progress Note: A&P Assessment and Plan (1) CVA (cerebral vascular accident): Code(s): I63.9 - Cerebral infarction, unspecified Status: Chronic Assessment and Plan: PT OT evaluation greatly be appreciated Echo MRI The patient had been on Eliquis which is on hold Her home medications have not been reconciled as of yet. 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 Sliding scale insulin. Check A1c hypoglycemic protocol. Hold metformin (3) Dementia: Qualifiers: Dementia type: unspecified type Dementia behavioral disturbance: without behavioral disturbance Qualified Code(s): F03.90 - Unspecified dementia without behavioral disturbance Code(s): F03.90 - Unspecified dementia, unspecified severity, without behavioral disturbance, psychotic disturbance, mood disturbance, and anxiety Status: Acute Assessment and Plan: From patient's medications are not reconciled at this time may resume home medications when she passes a swallow study (4) Anemia: Code(s): D64.9 - Anemia, unspecified Status: Acute Assessment and Plan: Continue to monitor CBC daily H&H is 9.8 and 31.4 which is slightly lower than her baseline. (5) HTN (hypertension) with goal to be determined: Code(s): I10 - Essential (primary) hypertension Status: Acute Assessment and Plan: P.r.n. hydralazine (6) Hyperlipidemia: Qualifiers: Hyperlipidemia type: mixed hyperlipidemia Qualified Code(s): E78.2 - Mixed hyperlipidemia Code(s): E78.5 - Hyperlipidemia, unspecified Status: Chronic Assessment and Plan: Continue with home medications if patient passes swallow study. Subjective Date/time seen: 10/21/22 11:41 No complaints Patient is alert this morning and answering questions appropriately. According to nursing staff this is likely her baseline. Exam Const: General: cooperative, healthy appearing, comfortable, no acute distress, well developed, alert, awake, Physically active, average body habitus, well nourished and overweight Nutritional Appearance: average body habitus, well nourished and overweight Orientation/consciousness: oriented to person, oriented to place, oriented to time and patient oriented x3 Limitations: no limitations HENMT: Head: normal to inspection, No palpable skull fracture present, normocephalic, atraumatic and abrasion Ears: external ears normal and hearing grossly impaired Face/Nose/Sinus: Normal external nose present and Normal nares present Eyes: General: appearance normal, both eyes and all related structures Alignment and Position: alignment normal Periorbital: periorbital findings normal Eyelids: eyelids normal Sclera: sclerae normal Pupils: Equal, round and reactive pupils present EOM: EOMs intact bilaterally Neck: Neck: normal visual inspection, full ROM, no lymphadenopathy, trachea midline and supple Chest: Chest palpation & inspection: normal inspection of the chest Resp: Effort & Inspection: normal respiratory effort Auscultation: clear to auscultation bilaterally Cardio: Palpation: normal PMI Rate: tachycardic Rhythm: regular rhythm Heart sounds: S1 normal heart sound present and S2 normal heart sound present Peripheral pulses: Peripheral pulses 2+ throughout GI: Inspection: normal to inspection Auscultation: normal bowel sounds Rectal Exam: deferred Urinary Catheter: Urinary Catheter: patent and draining and urine clear Back/Spine/Pelvis: Cervical Spine: cervical RO
[2022-10-21 12:17] LABS: Glucose Point of Care 225 mg/dl (65-105)
[2022-10-21] MEDS: INSULIN ASPART (*BKC) 100 UNITS/ML SUB-Q (12:42)
--- NOTE | 2022-10-21 14:34 | PCSTNOTE ---
Please refer to the Modified Barium Swallow Evaluation in the EMR.
[2022-10-21] MEDS: SILVERGEL (ELTA) 45 ML 1 APPLIC TOPICAL (17:00)
[2022-10-21] MEDS: TOLNAFTATE 1% POWDER 45 GM BTL 1 APPLIC TOPICAL ×2 (17:00→20:30)
[2022-10-21 18:20] LABS: Glucose Point of Care 213 mg/dl (65-105)
[2022-10-21] MEDS: INSULIN GLARGINE (*BKC) 100 UNITS/ML 15 UNITS SUB-Q (20:29)
[2022-10-21] MEDS: DONEPEZIL HCL 5 MG TABLET PO (20:30)
[2022-10-22] VITALS (12 sets, daily range): BP systolic 107–117; BP diastolic 49–68; PULSE 78–115; RESP 14–20; TEMP 36.1–36.9; O2SAT 97–100
[2022-10-22 00:11] LABS: Glucose Point of Care 179 mg/dl (65-105)
[2022-10-22] MEDS: metroNIDAZOLE 500 MG/ISO 100ML 500 MG/100 ML BAG 100 MG IVPB ×3 (00:19→17:37)
[2022-10-22] MEDS: SODIUM CHLORIDE 0.9% IV 1,000 ML 75 ML IV CONT ×2 (00:20→20:56)
[2022-10-22 04:31] LABS: Basophils Absolute Auto 0.1 K/mm3 (0.0-0.1); Basophils Percent Auto 1.7 % (0.2-1.2); Eosinophils Absolute Auto 0.5 K/mm3 (0-0.3); Eosinophils Percent Auto 8.1 % (0-4.4); Hematocrit 27.1 % (37.0-47.0); Hemoglobin 8.6 g/dL (12.0-15.0); Immature Granulocyte Absolute 0.02 K/mm3 (0.00-0.031); Immature Granulocyte Percent A 0.3 % (0-0.5); Lymphocytes Absolute Auto 1.22 K/mm3 (0.9-3.2); Lymphocytes Percent Auto 20.5 % (18.3-44.2); Mean Corpuscular HGB Conc 31.7 g/dl (32-36); Mean Corpuscular Volume 94.4 fl (80-100); Mean Platelet Volume 8.6 fl (7.4-10.4); Monocytes Absolute Auto 0.6 K/mm3 (0.1-0.6); Monocytes Percent Auto 9.4 % (2.6-8.5); Neutrophils Absolute Auto 3.6 K/mm3 (1.3-6.7); Platelet Count Result 279 k/mm3 (150-375); Red Blood Count 2.87 M/mm3 (4.2-5.4)
[2022-10-22 06:23] LABS: Glucose Point of Care 128 mg/dl (65-105)
--- NOTE | 2022-10-22 08:31 | PCOTNOTE ---
Spoke with hospitalist Dr. Waters yesterday 10/21/2022 who was agreeable to bed rest with bathroom privileges being changed to a less restrictive activity order.
[2022-10-22 11:46] LABS: Glucose Point of Care 142 mg/dl (65-105)
[2022-10-22] MEDS: FERROUS SULFATE 324 MG TABLET PO ×2 (12:08→17:39)
[2022-10-22] MEDS: MULTIVITAMINS /C LUTEIN (CENTRUM SILVER) TABLET *BKC 1 TAB PO (12:08)
[2022-10-22] MEDS: MAGNESIUM OXIDE 400 MG TABLET PO (12:09)
[2022-10-22] MEDS: ASPIRIN 81 MG ENTERIC TABLET PO (12:09)
[2022-10-22] MEDS: TOLNAFTATE 1% POWDER 45 GM BTL 1 APPLIC TOPICAL ×2 (12:09→20:53)
[2022-10-22] MEDS: SILVERGEL (ELTA) 45 ML 1 APPLIC TOPICAL (12:10)
--- NOTE | 2022-10-22 16:28 | PM.IMPN ---
Progress Note: A&P Assessment and Plan (1) CVA (cerebral vascular accident): Code(s): I63.9 - Cerebral infarction, unspecified Status: Chronic Assessment and Plan: PT OT evaluation greatly be appreciated Echo MRI The patient had been on Eliquis which is on hold Her home medications have not been reconciled as of yet. 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 Sliding scale insulin. Check A1c hypoglycemic protocol. Hold metformin (3) Dementia: Qualifiers: Dementia type: unspecified type Dementia behavioral disturbance: without behavioral disturbance Qualified Code(s): F03.90 - Unspecified dementia without behavioral disturbance Code(s): F03.90 - Unspecified dementia, unspecified severity, without behavioral disturbance, psychotic disturbance, mood disturbance, and anxiety Status: Acute Assessment and Plan: From patient's medications are not reconciled at this time may resume home medications when she passes a swallow study (4) Anemia: Code(s): D64.9 - Anemia, unspecified Status: Acute Assessment and Plan: Continue to monitor CBC daily H&H is 9.8 and 31.4 which is slightly lower than her baseline. (5) HTN (hypertension) with goal to be determined: Code(s): I10 - Essential (primary) hypertension Status: Acute Assessment and Plan: P.r.n. hydralazine (6) Hyperlipidemia: Qualifiers: Hyperlipidemia type: mixed hyperlipidemia Qualified Code(s): E78.2 - Mixed hyperlipidemia Code(s): E78.5 - Hyperlipidemia, unspecified Status: Chronic Assessment and Plan: Continue with home medications if patient passes swallow study. Plan (1) CVA (cerebral vascular accident): PT OT evaluation greatly be appreciated Echo MRI The patient had been on Eliquis which is on hold Her home medications have not been reconciled as of yet. 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 Sliding scale insulin.? Check A1c hypoglycemic protocol.? Hold metformin (3) Dementia: ?Qualifiers: ?Dementia type From patient's medications are not reconciled at this time may resume home medications when she passes a swallow study (4) Anemia: Continue to monitor CBC daily H&H is 9.8 and 31.4 which is slightly lower than her baseline. (5) HTN (hypertension) with goal to be determined: P.r.n. hydralazine (6) Hyperlipidemia: Continue with home medications if patient passes swallow study. Family considering hospice care. Continue above treatment. Subjective Date/time seen: 10/22/22 16:28 family considering hospice, awaiting final decision Review of Systems Review of Systems: All systems reviewed & are unremarkable except as noted in HPI and below Constitutional: Constitutional: Reports as per HPI and Reports no additional constitutional complaints Eyes: Eyes: Reports as per HPI and Reports no additional eye complaints ENT: Reports system reviewed and no additional complaints, except as documented and Reports Normal hearing present Cardiovascular: Cardiovascular: Reports no additional cardiovascular complaints Respiratory: Respiratory: Reports no additional respiratory complaints and Reports no additional respiratory complaints Gastrointestinal: Gastrointestinal: Repor
[2022-10-22 16:51] LABS: Glucose Point of Care 91 mg/dl (65-105)
[2022-10-22 20:25] LABS: Glucose Point of Care 207 mg/dl (65-105)
[2022-10-22] MEDS: INSULIN GLARGINE (*BKC) 100 UNITS/ML 15 UNITS SUB-Q (20:52)
[2022-10-22] MEDS: DONEPEZIL HCL 5 MG TABLET PO (20:53)
[2022-10-22 23:55] LABS: Glucose Point of Care 171 mg/dl (65-105)
[2022-10-23] VITALS (14 sets, daily range): BP systolic 110–124; BP diastolic 36–64; PULSE 75–114; RESP 14–20; TEMP 36.3–36.9; O2SAT 93–100
[2022-10-23] MEDS: metroNIDAZOLE 500 MG/ISO 100ML 500 MG/100 ML BAG 100 MG IVPB ×3 (00:27→16:18)
[2022-10-23 07:01] LABS: Glucose Point of Care 124 mg/dl (65-105)
[2022-10-23 07:22] LABS: Basophils Absolute Auto 0.1 K/mm3 (0.0-0.1); Basophils Percent Auto 1.6 % (0.2-1.2); Eosinophils Absolute Auto 0.3 K/mm3 (0-0.3); Eosinophils Percent Auto 5.4 % (0-4.4); Hematocrit 31.5 % (37.0-47.0); Hemoglobin 8.9 g/dL (12.0-15.0); Immature Granulocyte Absolute 0.02 K/mm3 (0.00-0.031); Immature Granulocyte Percent A 0.3 % (0-0.5); Lymphocytes Absolute Auto 1.09 K/mm3 (0.9-3.2); Lymphocytes Percent Auto 17.4 % (18.3-44.2); Mean Corpuscular HGB Conc 28.3 g/dl (32-36); Mean Corpuscular Hemoglobin 30.1 pg (26-34); Mean Corpuscular Volume 106.4 fl (80-100); Mean Platelet Volume 8.8 fl (7.4-10.4); Monocytes Absolute Auto 0.6 K/mm3 (0.1-0.6); Monocytes Percent Auto 10.1 % (2.6-8.5); Neutrophils Absolute Auto 4.1 K/mm3 (1.3-6.7); Neutrophils Percent Auto 65.2 % (45.5-73.1); Platelet Count Result 264 k/mm3 (150-375); Red Blood Count 2.96 M/mm3 (4.2-5.4); White Blood Count 6.3 K/mm3 (4.5-10.0)
[2022-10-23 07:43] LABS: Alanine Aminotransferase 14 U/L (6-35); Albumin Level 2.2 g/dL (3.5-5.1); Alkaline Phosphatase 56 U/L (38-126); Anion Gap 1 mmol/L (8-16); Aspartate Amino Transferase 32 U/L (14-36); Bilirubin,Total 0.4 mg/dL (0.2-1.3); Blood Urea Nitrogen 9 mg/dL (7-17); Calcium 7.5 mg/dL (8.4-10.2); Carbon Dioxide 24 mmol/L (22-30); Chloride 102 mmol/L (98-107); Estimated CRCL calculation 84 ml/min; Estimated Glomerular Filt Rate > 60; Glucose 109 mg/dL (65-110); Potassium 3.8 mmol/L (3.4-5.0); Sodium 127 mmol/L (137-145)
[2022-10-23 08:08] LABS: Burr Cells 1+ (NORMAL); Macrocytosis 1+ (NORMAL); Platelet Estimate Adequate (Adequate); Schistocytes None Seen (NORMAL)
[2022-10-23] MEDS: ASPIRIN 81 MG ENTERIC TABLET PO (08:53)
[2022-10-23] MEDS: MAGNESIUM OXIDE 400 MG TABLET PO (08:53)
[2022-10-23] MEDS: FERROUS SULFATE 324 MG TABLET PO ×2 (08:53→17:51)
[2022-10-23] MEDS: TOLNAFTATE 1% POWDER 45 GM BTL 1 APPLIC TOPICAL ×2 (08:55→20:01)
[2022-10-23] MEDS: SILVERGEL (ELTA) 45 ML 1 APPLIC TOPICAL (08:55)
[2022-10-23] MEDS: MULTIVITAMINS /C LUTEIN (CENTRUM SILVER) TABLET *BKC 1 TAB PO (08:56)
[2022-10-23 12:23] LABS: Glucose Point of Care 170 mg/dl (65-105)
--- NOTE | 2022-10-23 15:19 | PM.IMPN ---
Progress Note: A&P Assessment and Plan (1) CVA (cerebral vascular accident): Code(s): I63.9 - Cerebral infarction, unspecified Status: Chronic Assessment and Plan: PT OT evaluation greatly be appreciated Echo MRI The patient had been on Eliquis which is on hold Her home medications have not been reconciled as of yet. 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 Sliding scale insulin. Check A1c hypoglycemic protocol. Hold metformin (3) Dementia: Qualifiers: Dementia type: unspecified type Dementia behavioral disturbance: without behavioral disturbance Qualified Code(s): F03.90 - Unspecified dementia without behavioral disturbance Code(s): F03.90 - Unspecified dementia, unspecified severity, without behavioral disturbance, psychotic disturbance, mood disturbance, and anxiety Status: Acute Assessment and Plan: From patient's medications are not reconciled at this time may resume home medications when she passes a swallow study (4) Anemia: Code(s): D64.9 - Anemia, unspecified Status: Acute Assessment and Plan: Continue to monitor CBC daily H&H is 9.8 and 31.4 which is slightly lower than her baseline. (5) HTN (hypertension) with goal to be determined: Code(s): I10 - Essential (primary) hypertension Status: Acute Assessment and Plan: P.r.n. hydralazine (6) Hyperlipidemia: Qualifiers: Hyperlipidemia type: mixed hyperlipidemia Qualified Code(s): E78.2 - Mixed hyperlipidemia Code(s): E78.5 - Hyperlipidemia, unspecified Status: Chronic Assessment and Plan: Continue with home medications if patient passes swallow study. Plan (1) CVA (cerebral vascular accident): PT OT evaluation greatly be appreciated Echo MRI The patient had been on Eliquis which is on hold Her home medications have not been reconciled as of yet. Neurology consult greatly be appreciated Now on hospice care (2) Type 2 diabetes mellitus with hypoglycemia without coma: ?Qualifiers: ?Diabetes mellitus custodial insulin use Accu-Cheks every 6 hours the patient is NPO.? Sliding scale insulin.? Check A1c hypoglycemic protocol.? Hold metformin (3) Dementia: ?Qualifiers: ?Dementia type From patient's medications are not reconciled at this time may resume home medications when she passes a swallow study (4) Anemia: Continue to monitor CBC daily H&H is 9.8 and 31.4 which is slightly lower than her baseline. (5) HTN (hypertension) with goal to be determined: P.r.n. hydralazine (6) Hyperlipidemia: Continue with home medications if patient passes swallow study. Now on hospice care and awaiting discharge with hospice. Subjective Date/time seen: 10/23/22 15:19 Patient was seen and examined at bedside, eating breakfast,alert but oriented to person. Family decided to transition to hospice care. Review of Systems Review of Systems: All systems reviewed & are unremarkable except as noted in HPI and below Constitutional: Constitutional: Reports as per HPI and Reports no additional constitutional complaints Eyes: Eyes: Reports as per HPI and Reports no additional eye complaints ENT: Reports system reviewed and no additional complaints, except as documented and Reports Normal hearing present Cardiovascular: Cardiovascular: Reports no additional cardiovascular complaints Respiratory: Respiratory: Reports no additional respiratory complaints and Reports no additional
[2022-10-23 16:33] LABS: Glucose Point of Care 163 mg/dl (65-105)
[2022-10-23 19:54] LABS: Sodium Urine Random 116 meq/L
[2022-10-23] MEDS: INSULIN GLARGINE (*BKC) 100 UNITS/ML 15 UNITS SUB-Q (19:59)
[2022-10-23] MEDS: DONEPEZIL HCL 5 MG TABLET PO (20:01)
[2022-10-23 21:08] LABS: Glucose Point of Care 190 mg/dl (65-105)
[2022-10-24] VITALS (10 sets, daily range): BP systolic 114–136; BP diastolic 51–60; PULSE 64–98; RESP 16–18; TEMP 36.2–36.5; O2SAT 99–100
[2022-10-24] MEDS: metroNIDAZOLE 500 MG/ISO 100ML 500 MG/100 ML BAG 100 MG IVPB ×2 (01:09→09:15)
[2022-10-24 01:20] LABS: Glucose Point of Care 184 mg/dl (65-105)
[2022-10-24 06:20] LABS: Glucose Point of Care 136 mg/dl (65-105)
[2022-10-24 08:32] LABS: Glucose Point of Care 155 mg/dl (65-105)
[2022-10-24] MEDS: SILVERGEL (ELTA) 45 ML 1 APPLIC TOPICAL (09:17)
[2022-10-24] MEDS: MULTIVITAMINS /C LUTEIN (CENTRUM SILVER) TABLET *BKC 1 TAB PO (09:18)
[2022-10-24] MEDS: FERROUS SULFATE 324 MG TABLET PO (09:18)
[2022-10-24] MEDS: ASPIRIN 81 MG ENTERIC TABLET PO (09:18)
[2022-10-24] MEDS: MAGNESIUM OXIDE 400 MG TABLET PO (09:18)
[2022-10-24] MEDS: TOLNAFTATE 1% POWDER 45 GM BTL 1 APPLIC TOPICAL (09:18)
--- NOTE | 2022-10-24 09:47 | PCNFU ---
Nutrition Follow-Up Complete: Increased nutrient needs (kcal/protein) related to wound healing as evidenced by ulcerated right heel and sacral pressure ulcer. 1. Patient diet to be advanced in the next 48-72 hours. - Goal met 2. Patient weight to remain within 2% of current weight (77 kg) through follow-up. - Goal met Goal: Pt current nutrition is Diabetic consistent carb diet, soft & bite sized level 6, thickened liquids. Glucerna is ordered BID for 220 kcals and 10 g protein each Nutrition recommendation: Continue same goals and current care plan Last recorded weight is 76 kg. Bowel Motility: Last BM 3-17 Labs Reviewed: Hgb 8.9, Hct 31.5, Alb 2.2, Na 127, Cre 0.5, Glu 190 Meds Noted: Insulin Skin: Multiple pressure injuries noted Additional Notes: Per MD notes, pt is now on hospice (not inpatient hospice status) and will discharge back to [place] on hospice. Continue with current interventions, no new interventions at this time. Monitor diet advancement/PO intake, weight status, labs. Follow every 5 days
[2022-10-24 12:24] LABS: Glucose Point of Care 180 mg/dl (65-105)
--- NOTE | 2022-10-24 15:28 | PM.DS ---
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 Sliding scale insulin.? Check A1c hypoglycemic protocol.? Hold metformin (3) Dementia: ?Qualifiers: ?Dementia type From patient's medications are not reconciled at this time may resume home medications when she passes a swallow study (4) Anemia: Continue to monitor CBC daily H&H is 9.8 and 31.4 which is slightly lower than her baseline. (5) HTN (hypertension) with goal to be determined: P.r.n. hydralazine (6) Hyperlipidemia: Continue with home medications if patient passes swallow study. Sacral wound and cellulitis Completed 5 days of CEfepime, flagyl and Vanc Discharged on 5 more days of Doxycycline and flagyl. Discharge to hospice. DS: Summary Hospital Course Hospital Course: This is a 72-year-old female patient who is very hard of hearing.? She resides at [facility] and has a history of hypertension, hyperlipidemia and dementia.? The patient was noted to be gazing off and minimally responsive at physical therapy today.? EMS was activated.? For EMS she was alert and orientated.? Patient denies any discomfort no focal weakness.? Her H&H is 9.8 and 31.4.? Her sodium is 128.? Troponin nonreactive x3.? Urine was negative.? Head and neck CTA was read as following?No large vessel occlusion or significant carotid or vertebral stenosis. 2. Likely occlusions of distal branches of the right superior cerebellar artery. 3. Acute right cerebellar artery infarct, in the territory of the right superior cerebellar artery. Head CT was read a sAcute right cerebellar infarct. The patient was given IV fluids, cefepime vancomycin in the emergency room.? Chest x-ray was read as clear lungs.? The patient was treated for possible cellulitis to the sacral wound and heel. has completed 5 days of Cefepime, flagyl and vanc. Discharged on 5 more days of Doxycycline. Family decided to transition to hospice care. Patient discharged to hospice care. Time Spent with Patient Time attestation: Total time spent providing and/or coordinating discharge services: DS: Data Data Completed and Pending Labs on day of discharge: Labs from last 24 hours 10/24/22 10/24/22 10/24/22 12:20 07:57 06:15 POC Capillary Glucose 180 H 155 H 136 H Serum Osmolality Urine Osmolality Ur Random Sodium 10/24/22 10/23/22 10/23/22 01:11 20:19 19:28 POC Capillary Glucose 184 H 190 H Serum Osmolality Pending Urine Osmolality Ur Random Sodium 10/23/22 10/23/22 10/23/22 18:35 18:35 16:26 POC Capillary Glucose 163 H Serum Osmolality Urine Osmolality Pending Ur Random Sodium 116 Preliminary micro results at discharge 10/20/22 16:15 Blood Culture - Preliminary Blood 10/20/22 16:04 Blood Culture - Preliminary Blood Discharge Plan Discharge Attending physician on discharge: Maty Singh Consulting providers: Shawanda Bedoya Discharging Clinician: Maty Singh Anticipated Discharge Date/Time: 10/24/22 15:25 Patient Disposition: Hospice - Medical Facility Activity: as tolerated Diet: as tolerated Patient Instructions: Apixaban (By mouth), Ischemic Stroke (DC) Stand Alone Forms: General Discharge Information Follow-up/Referrals: Paul Murphy MD [Primary Care Provider] - (in 3-5 days,) Discharge Medications: New doxycycline hyclate 100 mg Tablet 100 mg PO Q12HR Qty: 10 0RF Continued (DME) lancets [OneTouch Delica Lancets] 33 gauge mis
[2022-10-24 16:23] LABS: EDCOVIDSCREEN Negative (Negative)
[2022-10-27 16:46] LABS: Osmolality, Urine 414 mOsm/kg (50-1200)
== END 2022-10-24 18:33 | disposition hospice, inpatient (51) | DRG 65 ==
LOC: ANHED 14:24 → ANHIMU 22:34
PROVIDERS: Nurse Practitioner; Admitting Provider Chiropractor; Emergency Provider Emergency Medicine; PCP Internal Medicine; Visit Provider Internal Medicine
DX: I63.541 Cerebral infarction due to unspecified occlusion or stenosis of right cerebellar artery (principal); L03.312 Cellulitis of back [any part except buttock and flank]; L98.415 Non-pressure chronic ulcer of buttock with muscle involvement without evidence of necrosis; L89.629 Pressure ulcer of left heel, unspecified stage; D64.9 Anemia, unspecified; E11.649 Type 2 diabetes mellitus with hypoglycemia without coma; E78.2 Mixed hyperlipidemia; F03.90 Unspecified dementia, unspecified severity, without behavioral disturbance, psychotic disturbance, mood disturbance, and anxiety; H91.90 Unspecified hearing loss, unspecified ear; I10 Essential (primary) hypertension; Z20.822 Contact with and (suspected) exposure to COVID-19; Z98.49 Cataract extraction status, unspecified eye; Z79.84 Long term (current) use of oral hypoglycemic drugs; Z79.01 Long term (current) use of anticoagulants; Z96.653 Presence of artificial knee joint, bilateral; Z86.73 Personal history of transient ischemic attack (TIA), and cerebral infarction without residual deficits; Z79.4 Long term (current) use of insulin
CPT/HCPCS: 36415; 70450; 70496; 70498; 70553; 71045; 80053; 80202; 81003; 82948; 83036; 83605; 83735; 83930; 83935; 84295; 84300; 84443; 84484; 85025; 85610; 85730; 87040; 87426; 92610; 92611; 93005; 93306; 96361; 96365; 96366; 96368; 96375; 97161; 97165; 99285; A9270; A9577; C9803; J0692; J1815; J3370; J7030; Q9957; Q9967